=== PATIENT | female | born 1965 | race Caucasian/White ===

== ENCOUNTER 2017-03-25 21:14 | Inpatient (IN) | payer OTHER ==
[~2017-03-25] VITALS: Ht 167.6 cm; Wt 132.9 kg
--- NOTE | ~2017-03-25 | PR ---
[place], [place] PROGRESS NOTE NAME: ALEJA BULLARD UNIT #: [id number] ROOM: 503 DOCTOR: BEV ZAVALA MD BIRTHDATE: [birth year] DOS: 03/30/2017 CARDIOLOGY FOLLOWUP VISIT NOTE REASON FOR VISIT: NSTEMI and abnormal stress test. SUBJECTIVE: The patient is feeling better. She is sitting up in the bed. She is about to transfer out of ICU. Denies any chest pain, still little short of breath. No PND, no orthopnea. No palpitations or dizziness. No fevers. REVIEW OF SYSTEMS: Review of the 8 systems negative except as mentioned above. PHYSICAL EXAMINATION: VITAL SIGNS: Blood pressure 118/76, pulse 89, respiratory rate 16. Rhythm strips, the patient is in sinus rhythm. GENERAL: Alert, comfortable, in no acute distress. HEENT: Pupils are round. No jaundice. Tongue was moist and pharynx was clear. NECK: Supple. No distended neck veins. No carotid bruit. CHEST: Symmetrical, nontender. LUNGS: Few scattered rhonchi. HEART: Regular rhythm, no S3. ABDOMEN: Obese, nontender. EXTREMITIES: Showed trace edema. Distal pulses are palpable. SKIN: Warm and dry. No cyanosis, no clubbing. Review of the diagnostic test, rhythm strips and labs reviewed. IMPRESSION: 1. Non-ST elevation myocardial infarction. 2. Abnormal stress test. 3. Hypertension. 4. Diabetes type 2. 5. Bronchitis. RECOMMENDATIONS: 1. Continue current medications. 2. She was scheduled for cardiac catheterization on Saturday at [facility] if she is stable from her pulmonary standpoint and bronchitis. [place], [place] PROGRESS NOTE NAME: ALEJA BULLARD UNIT #: [id number] ROOM: 503 DOCTOR: BEV ZAVALA MD BIRTHDATE: [birth year] BEV ZAVALA MD CM:PNTRANS [id number] BEV ZAVALA MD 03/31/17 0913 interface
--- NOTE | ~2017-03-25 | CON ---
[place], [place] REPORT OF CONSULTATION NAME: ALEJA BULLARD UNIT #: [id number] ROOM: 402 DOCTOR: DOROTHY TAYLOR III, DPM BIRTHDATE: [birth year] DOS: 03/27/2017 CHIEF COMPLAINT: Ingrown toenail, left hallux nail. HISTORY OF PRESENT ILLNESS: This is a 51-year-old female who was admitted for chief complaint of shortness of breath who was seen at bedside for evaluation regarding the left hallux ingrown nail. The patient states she has had problems with this in the past. She states she has tried trimming the nail back on her own; however, she feels that there is a corner deep inside the nail bed. The patient does relate a history of smoking 1 or 2 packs a day for approximately 40 years. PAST MEDICAL HISTORY: Significant for hypertension, tobacco use, morbid obesity. PAST SURGICAL HISTORY: . FAMILY HISTORY: Father at 52 of a heart attack. Mother still alive and healthy. ALLERGIES: No known drug allergies. MEDICATIONS: Please refer to medication list. PHYSICAL EXAMINATION: VITAL SIGNS: Temperature 97.5, pulse rate of 93, respiratory rate of 20, blood pressure 151/87. VASCULAR: DP and PT pulses are barely palpable, CFT is within normal limits, lack of hair growth appreciated bilateral lower extremities. DERMATOLOGY: The patient has an incurvated left hallux nail appreciated on examination with tenderness to palpation of the lateral hallux nail border distally. No signs of infection. No cellulitis. No lymphangitis. No pus or drainage. NEUROLOGIC: Intact protective sensation. ORTHOPEDICS: Muscle strength is intact. Negative Homans', negative calf pain. Pain on palpation of the lateral hallux nail border, left. LABORATORY DATA: White blood cell count 7.4, hemoglobin 11.9, hematocrit 36.3, platelets 233. ASSESSMENT: 1. Ingrown left hallux nail. 2. Peripheral arterial disease. TREATMENT PLAN AND RECOMMENDATIONS: Findings as well as prognosis discussed in detail with the patient. All questions were answered to her apparent satisfaction. This is a 51-year-old female admitted for shortness of breath with a long history of smoking 1 or 2 packs a day for 40 years seen at bedside for a painful ingrown left hallux nail with no gross signs of infection. I have ordered some baseline vascular studies prior to proceeding with surgical [place], [place] REPORT OF CONSULTATION NAME: ALEJA BULLARD UNIT #: [id number] ROOM: 402 DOCTOR: DOROTHY TAYLOR III, DPM BIRTHDATE: [birth year] intervention. A slant back procedure was performed at the bedside, which appeared to resolve most of her discomfort. Should her pain continue, we will have to proceed with a nail avulsion which can be done as an outpatient. The patient notes understanding and is in agreement. She has already seen another doctor in our group. We will order some noninvasive vascular studies and proceed from there. Antibiotic ointment as well as topical Band-Aid was applied today to the nail and can be applied on a daily basis. DOROTHY TAYLOR III, DPM CM:CONSTR:REPORT OF CONSULTATION 1217 03/28/17 0205 interface
--- NOTE | ~2017-03-25 | PR ---
[place], [place] PROGRESS NOTE NAME: ALEJA BULLARD [facility] #: [id number] UNIT #: [id number] ROOM: 402 DOCTOR: ZOË NICOLAS DPM BIRTHDATE: [birth year] DOS: 03/28/2017 SUBJECTIVE: The patient was seen for followup of incurvated lateral border, left hallux. The patient felt much improved after yesterday and is feeling no pain to the toe today. OBJECTIVE: No signs of erythema or drainage, left great toe, much improved. No pain upon direct palpation. Results of arterial vascular exam revealed all the major runoff vessels are patent in both lower extremities. Doppler waveforms suggest mild arterial disease on the left distal to the popliteal. There is inability to compress the vessels at the ankle for an WILMER suggestive of arterial ____ calcification. ASSESSMENT: Peripheral vascular disease, perionychia, onychocryptosis, lateral first left toe. PLAN: Evaluation and management discussed with the patient. Recommendation of possible partial matrixectomy in the future to the lateral left hallux, but also recommended vascular consultation prior to that. A venous Doppler will be ordered due to edema of the left lower extremity also, however, and the patient can be seen early next week for followup. ZOË NICOLAS DPM CM:ZOHAIB [id number] ZOË NICOLAS DPM 03/29/17 0239 interface
--- NOTE | ~2017-03-25 | PR ---
[place], [place] PROGRESS NOTE NAME: ALEJA BULLARD UNIT #: [id number] ROOM: 503 DOCTOR: BEV ZAVALA MD BIRTHDATE: [birth year] DOS: 03/31/2017 CARDIOLOGY FOLLOWUP VISIT NOTE REASON FOR : Chest pain, abnormal stress test and elevated cardiac enzymes. HISTORY OF PRESENT ILLNESS: The patient is feeling better. Denies any chest pain. No orthopnea, no PND. No edema, no fever and chills, no cough. REVIEW OF SYSTEMS: Review of the 8 systems negative except as mentioned above. RHYTHM STRIPS: The patient in sinus rhythm. PHYSICAL EXAMINATION: VITAL SIGNS: Blood pressure 120/70, pulse 80, respiratory rate is 18. GENERAL: Alert, comfortable, in no acute distress. HEAD AND NECK: Pupils round, equal. No jaundice. Tongue was moist and pharynx was clear. NECK: Supple, no distended neck veins, no carotid bruit. CHEST: Symmetrical, nontender. LUNGS: Clear to auscultation bilaterally. HEART: Regular rhythm, no S3. ABDOMEN: Benign, nontender. Bowel sounds normal. EXTREMITIES: Showed no edema. Distal pulses are palpable. SKIN: Warm and dry. No cyanosis, no clubbing. NEUROLOGIC: The patient is alert, oriented. No focal neurologic deficit. RECTAL: Deferred. GENITOURINARY EXAM: Deferred. REVIEW OF THE DIAGNOSTIC TESTS: Labs and rhythm strips reviewed. IMPRESSION: 1. Non-ST elevation myocardial infarction. 2. Abnormal stress test. 3. Hypertension. 4. Diabetes mellitus type 2. 5. Obesity. 6. Bronchitis. RECOMMENDATIONS: Continue current medication. Wean her oxygen by nasal cannula. She was scheduled for cardiac catheterization tomorrow at [facility] at 10 a.m. Again, risk, complications of cardiac catheterization discussed with the patient and her family member who is at bedside and all questions were answered. Further recommendations based on her cardiac cath findings. [place], [place] PROGRESS NOTE NAME: ALEJA BULLARD UNIT #: [id number] ROOM: 503 DOCTOR: BEV ZAVALA MD BIRTHDATE: [birth year] The patient counseled for risk factor modification, especially for diet, exercise, and weight loss. BEV ZAVALA MD CM:ZOHAIB 50 6 BEV ZAVALA MD 04/01/17 015 interface
--- NOTE | ~2017-03-25 | ST ---
[place], [place] EXERCISE STRESS TEST REPORT [facility]ULLARD [id number] UN[facility] #: [id number] ROOM: [facility] DOCTOR: RODNEY LÓPEZ MD BIRTHDATE: [birth year] DOS: 03/29/2017 LEXISCAN STRESS EKG REPORT REFERRING PHYSICIAN: Dr. Erickson. INDICATION: Elevated troponin, shortness of breath, chest pain. The patient underwent standard protocol Lexiscan stress EKG. The patient's baseline EKG showed normal sinus rhythm with nonspecific ST-T changes. The patient's baseline heart rate was 99 with a blood pressure of 136/82. The patient's peak heart rate was 109 with a blood pressure 140/80. The patient denied any chest pain, shortness of breath or other symptoms during stress. No EKG changes noted. No arrhythmias noted. SUMMARY OF FINDINGS: 1. Unremarkable Lexiscan stress EKG. 2. Please see separate report for perfusion scan results. RODNEY LÓPEZ MD CM:STRESS:EXERCISE STRESS TEST REPORT [id number] RODNEY LÓPEZ MD
[2017-03-25 21:22] VITALS: BP 160/98
[2017-03-25] MEDS ORDERED: ROPINIROLE HYDRO3 MG PO (21:23)
[2017-03-25] MEDS ORDERED: LOSARTAN POTAS100 M1 PO (21:23)
[2017-03-25] MEDS ORDERED: IBU800 M1 PO (21:23)
[2017-03-25] MEDS ORDERED: CHANTIX START M1 TAB PO (21:24)
[2017-03-25 21:58] LABS: BASO % 0.4 % (0.0-1.0); EOS # 0.1 10*3/uL (0.0-0.4); EOS % 1.9 % (1.0-4.0); HEMATOCRIT 35.3 % (37.0-47.0); HEMOGLOBIN 11.4 g/dl (12.0-16.0); LYMPH # 1.6 10*3/uL (1.3-4.4); LYMPH % 24.4 % (27.0-41.0); MEAN CELL VOLUME 98.9 fl (81.0-99.0); MEAN CORPUSCULAR HGB 31.9 pg (27.0-31.0); MEAN CORPUSCULAR HGB CONC 32.3 g/dl (33.0-37.0); MEAN PLATELET VOLUME 9.4 fl (9.6-12.3); MONO # 0.4 10*3/uL (0.1-1.0); MONO % 5.2 % (3.0-9.0); NEUT # 4.6 10*3/uL (2.3-7.9); NEUT % 67.8 % (47.0-73.0); PLATELET COUNT AUTOMATED 214 10*3/uL (130-400); RED BLOOD COUNT 3.57 10*6/uL (4.10-5.10); RED CELL DISTRI WIDTH 13.4 % (0-14.5); WHITE BLOOD COUNT 6.7 10*3/uL (4.8-10.8)
[2017-03-25 22:07] LABS: INTERNATIONAL NORM RATIO 0.9 (2.0-3.5); PROTHROMBIN TIME 9.9 SECONDS (9.0-12.4)
[2017-03-25 22:15] LABS: ALBUMIN 3.3 gm/dl (3.1-4.5); ALKALINE PHOSPHATASE 76 U/L (45-117); BILIRUBIN, TOTAL 0.3 mg/dl (0.2-1.0); BUN 20 mg/dl (7-24); CARBON DIOXIDE 25 mmol/L (21-32); CHLORIDE 115 mmol/L (98-107); EST GLOM FILT AFRICAN AMERICAN > 60 ml/min; GLUCOSE 110 mg/dL (65-99); MAGNESIUM 1.8 mg/dL (1.5-2.1); POTASSIUM 4.7 mmol/L (3.5-5.1); SGOT/AST 22 IU/L (3-35); SGPT/ALT 45 U/L (12-78); SODIUM 147 mmol/L (136-145); TOTAL PROTEIN 6.6 gm/dL (6.4-8.2)
[2017-03-25 22:21] LABS: TROPONIN I 0.065 ng/ml (<0.045)
[2017-03-26] VITALS: BP 150/80
[2017-03-26 00:51] LABS: CKMB 5.4 ng/ml (0.5-3.6); TROPONIN I 0.058 ng/ml (<0.045)
[2017-03-26 06:31] LABS: HEMATOCRIT 36.3 % (37.0-47.0); HEMOGLOBIN 11.9 g/dl (12.0-16.0); MEAN CELL VOLUME 98.4 fl (81.0-99.0); MEAN CORPUSCULAR HGB 32.2 pg (27.0-31.0); MEAN CORPUSCULAR HGB CONC 32.8 g/dl (33.0-37.0); MEAN PLATELET VOLUME 9.5 fl (9.6-12.3); PLATELET COUNT AUTOMATED 233 10*3/uL (130-400); RED BLOOD COUNT 3.69 10*6/uL (4.10-5.10); RED CELL DISTRI WIDTH 13.5 % (0-14.5); WHITE BLOOD COUNT 7.4 10*3/uL (4.8-10.8)
[2017-03-26 06:43] LABS: ALBUMIN 3.7 gm/dl (3.1-4.5); ALKALINE PHOSPHATASE 78 U/L (45-117); BILIRUBIN, TOTAL 0.3 mg/dl (0.2-1.0); BUN 16 mg/dl (7-24); CARBON DIOXIDE 24 mmol/L (21-32); CHLORIDE 111 mmol/L (98-107); CHOLESTEROL 213 mg/dL (<200); EST GLOM FILT AFRICAN AMERICAN > 60 ml/min; GLUCOSE 155 mg/dL (65-99); HDL CHOLESTEROL 80 mg/dl (40-60); LDL CHOLESTEROL 111 mg/dL (9-159); MAGNESIUM 1.9 mg/dL (1.5-2.1); PHOSPHOROUS 3.2 mg/dL (2.5-4.9); POTASSIUM 4.4 mmol/L (3.5-5.1); SGOT/AST 21 IU/L (3-35); SGPT/ALT 44 U/L (12-78); SODIUM 144 mmol/L (136-145); TOTAL PROTEIN 7.1 gm/dL (6.4-8.2); TRIGLYCERIDES 110 mg/dl (<150); TROPONIN I 0.042 ng/ml (<0.045); VLDL CHOLESTEROL 22 mg/dL (6-40)
[2017-03-26 06:45] LABS: FREE T4 1.04 ng/dl (0.76-1.46)
[2017-03-26 06:49] LABS: THYROID STIM HORMONE (HS) 0.968 uIU/ml (0.358-4.75)
[2017-03-26 06:59] LABS: LYMPHOCYTE # 0.1 10*3/uL (1.3-4.4); MONOCYTE # 0.1 10*3/uL (0.1-1.0); NEUTROPHIL # 7.1 10*3/uL (2.3-7.9); NEUTROPHILS 96 % (47-73); PLATELET SUFFICIENCY NORMAL (NORMAL); TOTAL CELLS COUNTED 100 #CELLS
[2017-03-26 07:09] LABS: INTERNATIONAL NORM RATIO 0.9 (2.0-3.5)
[2017-03-26 07:23] LABS: HEMOGLOBIN A1c 6.1 % (4.8-5.6)
[2017-03-26 07:59] LABS: FOLIC ACID 4.19 ng/mL (>5.38); VITAMIN D, 25-HYDROXY 6.4 ng/mL (30-100)
[2017-03-26 08:00] VITALS: BP 150/74
[2017-03-26 12:00] VITALS: BP 147/85
[2017-03-26 16:00] VITALS: BP 164/74
[2017-03-26 20:00] VITALS: BP 133/87
[2017-03-27] VITALS: BP 147/89
[2017-03-27 08:00] VITALS: BP 151/87
[2017-03-27 12:00] VITALS: BP 144/86
[2017-03-27 16:00] VITALS: BP 147/65
[2017-03-27 20:00] VITALS: BP 146/79
[2017-03-28] VITALS: BP 148/80
[2017-03-28 08:00] VITALS: BP 146/84
[2017-03-28 12:00] VITALS: BP 136/73
[2017-03-28 16:46] VITALS: BP 149/89
[2017-03-28 20:00] VITALS: BP 144/85
[2017-03-29] VITALS: BP 148/81
[2017-03-29 06:34] LABS: BASO % 0.1 % (0.0-1.0); HEMATOCRIT 40.1 % (37.0-47.0); HEMOGLOBIN 13.2 g/dl (12.0-16.0); IG # 0.1 10*3/uL (0.0-0.1); LYMPH # 0.9 10*3/uL (1.3-4.4); LYMPH % 8.9 % (27.0-41.0); MEAN CELL VOLUME 96.9 fl (81.0-99.0); MEAN CORPUSCULAR HGB 31.9 pg (27.0-31.0); MEAN CORPUSCULAR HGB CONC 32.9 g/dl (33.0-37.0); MEAN PLATELET VOLUME 10.2 fl (9.6-12.3); MONO # 0.4 10*3/uL (0.1-1.0); MONO % 3.4 % (3.0-9.0); NEUT # 8.9 10*3/uL (2.3-7.9); NEUT % 86.5 % (47.0-73.0); PLATELET COUNT AUTOMATED 322 10*3/uL (130-400); RED BLOOD COUNT 4.14 10*6/uL (4.10-5.10); RED CELL DISTRI WIDTH 13.6 % (0-14.5); WHITE BLOOD COUNT 10.3 10*3/uL (4.8-10.8)
[2017-03-29 06:58] LABS: CHLORIDE 105 mmol/L (98-107); POTASSIUM 4.4 mmol/L (3.5-5.1); SODIUM 140 mmol/L (136-145)
[2017-03-29 07:02] LABS: BUN 18 mg/dl (7-24); CARBON DIOXIDE 25 mmol/L (21-32); EST GLOM FILT AFRICAN AMERICAN > 60 ml/min; GLUCOSE 155 mg/dL (65-99)
[2017-03-29] MEDS ORDERED: ATORVASTATIN CA40 M1 PO (07:53)
[2017-03-29] MEDS ORDERED: PHARMASSURE FO0.4 MG PO (07:53)
[2017-03-29] MEDS ORDERED: VITAMIN D-32000 UNIT PO (07:53)
[2017-03-29] MEDS ORDERED: PREDNISONE10 MG PO (07:54)
[2017-03-29] MEDS ORDERED: LEVOFLOXACIN500 MG PO (07:54)
[2017-03-29 08:00] VITALS: BP 148/90
[2017-03-29 09:05] VITALS: BP 203/115
[2017-03-29 09:09] LABS: CKMB 3.6 ng/ml (0.5-3.6)
[2017-03-29 14:00] VITALS: BP 135/75
[2017-03-29 16:00] VITALS: BP 108/71
[2017-03-29 19:50] VITALS: BP 131/84
[2017-03-30] VITALS: BP 124/81
[2017-03-30 04:00] VITALS: BP 112/80
[2017-03-30 05:50] LABS: BASO % 0.1 % (0.0-1.0); HEMATOCRIT 39.1 % (37.0-47.0); HEMOGLOBIN 13.1 g/dl (12.0-16.0); IG # 0.1 10*3/uL (0.0-0.1); LYMPH # 0.9 10*3/uL (1.3-4.4); LYMPH % 8.5 % (27.0-41.0); MEAN CELL VOLUME 96.3 fl (81.0-99.0); MEAN CORPUSCULAR HGB 32.3 pg (27.0-31.0); MEAN CORPUSCULAR HGB CONC 33.5 g/dl (33.0-37.0); MEAN PLATELET VOLUME 10.2 fl (9.6-12.3); MONO # 0.4 10*3/uL (0.1-1.0); MONO % 3.9 % (3.0-9.0); NEUT # 8.9 10*3/uL (2.3-7.9); NEUT % 86.7 % (47.0-73.0); PLATELET COUNT AUTOMATED 280 10*3/uL (130-400); RED BLOOD COUNT 4.06 10*6/uL (4.10-5.10); RED CELL DISTRI WIDTH 13.5 % (0-14.5); WHITE BLOOD COUNT 10.3 10*3/uL (4.8-10.8)
[2017-03-30 05:57] LABS: BUN 21 mg/dl (7-24); CARBON DIOXIDE 27 mmol/L (21-32); CHLORIDE 102 mmol/L (98-107); EST GLOM FILT AFRICAN AMERICAN > 60 ml/min; GLUCOSE 229 mg/dL (65-99); POTASSIUM 4.3 mmol/L (3.5-5.1); SODIUM 138 mmol/L (136-145)
[2017-03-30 08:00] VITALS: BP 118/68
[2017-03-30 12:00] VITALS: BP 118/76
[2017-03-30 16:00] VITALS: BP 110/56
[2017-03-30 20:00] VITALS: BP 129/78
[2017-03-31] VITALS: BP 115/73
[2017-03-31 08:00] VITALS: BP 115/70
[2017-03-31 12:00] VITALS: BP 120/72
[2017-03-31 16:00] VITALS: BP 113/69
[2017-03-31 20:00] VITALS: BP 125/79
[2017-04-01] VITALS: BP 127/75
[2017-04-01 06:37] LABS: BASO % 0.1 % (0.0-1.0); HEMATOCRIT 43.9 % (37.0-47.0); HEMOGLOBIN 14.6 g/dl (12.0-16.0); IG # 0.1 10*3/uL (0.0-0.1); LYMPH # 0.9 10*3/uL (1.3-4.4); LYMPH % 6.5 % (27.0-41.0); MEAN CELL VOLUME 95.9 fl (81.0-99.0); MEAN CORPUSCULAR HGB 31.9 pg (27.0-31.0); MEAN CORPUSCULAR HGB CONC 33.3 g/dl (33.0-37.0); MEAN PLATELET VOLUME 9.9 fl (9.6-12.3); MONO # 0.5 10*3/uL (0.1-1.0); MONO % 3.9 % (3.0-9.0); NEUT # 12.2 10*3/uL (2.3-7.9); NEUT % 88.5 % (47.0-73.0); PLATELET COUNT AUTOMATED 323 10*3/uL (130-400); RED BLOOD COUNT 4.58 10*6/uL (4.10-5.10); RED CELL DISTRI WIDTH 13.3 % (0-14.5); WHITE BLOOD COUNT 13.8 10*3/uL (4.8-10.8)
[2017-04-01 06:59] LABS: BUN 26 mg/dl (7-24); CARBON DIOXIDE 30 mmol/L (21-32); CHLORIDE 101 mmol/L (98-107); EST GLOM FILT AFRICAN AMERICAN > 60 ml/min; GLUCOSE 188 mg/dL (65-99); SODIUM 139 mmol/L (136-145)
== END 2017-04-01 07:56 | disposition other institution (70) | DRG 871 ==
LOC: ED 21:14 → 4E 22:50 → EDHOLD 22:50 → 4E 23:05 → ICCU 03-29 08:36 → 5E 03-30 13:47
PROVIDERS: Hospitalist; Internal Medicine Cardiovascular Disease; Physician Assistant; Student in an Organized Health Care Education/Training Program
PROC: 4A02XM4 Measurement of Cardiac Total Activity, External Approach (ICD-10-PCS; principal; 2017-03-29)
DX: A41.9 Sepsis, unspecified organism (principal); J18.9 Pneumonia, unspecified organism; I21.4 Non-ST elevation (NSTEMI) myocardial infarction; E87.0 Hyperosmolality and hypernatremia; E87.8 Other disorders of electrolyte and fluid balance, not elsewhere classified; B35.1 Tinea unguium; Z68.41 Body mass index [BMI] 40.0-44.9, adult; J20.9 Acute bronchitis, unspecified; D64.9 Anemia, unspecified; E83.51 Hypocalcemia; G25.81 Restless legs syndrome; E53.8 Deficiency of other specified B group vitamins; F17.200 Nicotine dependence, unspecified, uncomplicated; I10 Essential (primary) hypertension; E66.01 Morbid (severe) obesity due to excess calories; R06.01 Orthopnea; L60.0 Ingrowing nail; R10.13 Epigastric pain; E11.65 Type 2 diabetes mellitus with hyperglycemia; E11.51 Type 2 diabetes mellitus with diabetic peripheral angiopathy without gangrene; L03.039 Cellulitis of unspecified toe; Z79.1 Long term (current) use of non-steroidal anti-inflammatories (NSAID); Z79.899 Other long term (current) drug therapy; Z82.49 Family history of ischemic heart disease and other diseases of the circulatory system

== ENCOUNTER → 2017-05-01 | Outpatient (CLI) | payer OTHER ==
[~2017-05-01] MED LIST: ATORVASTATIN CA40 M1 PO; CHANTIX START M1 TAB PO; IBU800 M1 PO; LEVOFLOXACIN500 MG PO; LOSARTAN POTAS100 M1 PO; PHARMASSURE FO0.4 MG PO; PREDNISONE10 MG PO; ROPINIROLE HYDRO3 MG PO; VITAMIN D-32000 UNIT PO
== END | disposition home or self-care (01) ==
LOC: RAD 16:06
DX: J18.9 Pneumonia, unspecified organism (principal); I10 Essential (primary) hypertension; I51.7 Cardiomegaly; M25.473 Effusion, unspecified ankle

== ENCOUNTER 2017-10-07 08:46 | Emergency (ER) | payer OTHER ==
[~2017-10-07] VITALS: Ht 167.6 cm; Wt 136.1 kg
[2017-10-07 09:58] LABS: BASO % 0.2 % (0.0-1.0); EOS % 0.1 % (1.0-4.0); HEMATOCRIT 35.5 % (37.0-47.0); HEMOGLOBIN 12.2 g/dl (12.0-16.0); LYMPH # 0.7 10*3/uL (1.3-4.4); LYMPH % 6.6 % (27.0-41.0); MEAN CELL VOLUME 94.7 fl (81.0-99.0); MEAN CORPUSCULAR HGB 32.5 pg (27.0-31.0); MEAN CORPUSCULAR HGB CONC 34.4 g/dl (33.0-37.0); MEAN PLATELET VOLUME 9.4 fl (9.6-12.3); MONO # 0.4 10*3/uL (0.1-1.0); NEUT # 9.7 10*3/uL (2.3-7.9); NEUT % 88.8 % (47.0-73.0); PLATELET COUNT AUTOMATED 231 10*3/uL (130-400); RED BLOOD COUNT 3.75 10*6/uL (4.10-5.10); RED CELL DISTRI WIDTH 13.3 % (0-14.5); WHITE BLOOD COUNT 10.9 10*3/uL (4.8-10.8)
[2017-10-07 10:13] LABS: ALBUMIN 3.4 gm/dl (3.1-4.5); ALKALINE PHOSPHATASE 94 U/L (45-117); BUN 10 mg/dl (7-24); CHLORIDE 103 mmol/L (98-107); CREATININE 0.64 mg/dL (0.55-1.02); POTASSIUM 3.9 mmol/L (3.5-5.1); SGOT/AST 34 IU/L (3-35); SGPT/ALT 68 U/L (12-78); SODIUM 136 mmol/L (136-145); TOTAL PROTEIN 7.2 gm/dL (6.4-8.2)
[2017-10-07] MEDS ORDERED: PROAIR HFA8.5 GM INH (11:42)
[2017-10-07] MEDS ORDERED: ROBITUSSIN DM 105 ML PO (11:42)
[2017-10-07] MEDS ORDERED: PREDNISONE20 M1 PO (11:42)
[2017-10-07] MEDS ORDERED: ZITHROMAX250 MG PO (11:42)
== END 2017-10-07 12:02 | disposition home or self-care (01) ==
LOC: ED 08:46
PROVIDERS: Nurse Practitioner Family
DX: J20.9 Acute bronchitis, unspecified (principal); J44.0 Chronic obstructive pulmonary disease with (acute) lower respiratory infection; Z79.899 Other long term (current) drug therapy

== ENCOUNTER 2018-03-21 17:16 | Emergency (ER) | payer OTHER ==
[~2018-03-21] VITALS: Ht 170.1 cm; Wt 129.3 kg
--- NOTE | ~2018-03-21 | EKG ---
[place], [place] ELECTROCARDIOGRAM REPORT NAME: ALEJA BULLARD UNIT #: [id number] ROOM: DOCTOR: IGOR MAKI MD BIRTHDATE: [birth year] DOS: 03/21/2018 TIME: 1744 hours. FINDINGS: 1. Normal sinus rhythm at 97 beats per minute. 2. Minimal criteria for LVH. 3. Poor R-wave progression is present that may be from lead misplacement or old anterior wall myocardial infarction is a possibility. 4. Left atrial abnormality. 5. An abnormal ECG. 6. No previous tracing is available for comparison. IGOR MAKI MD CM:EKGRPT:ELECTROCARDIOGRAM REPORT [id number] 1441 IGOR MAKI MD
[~2018-03-21 17:16] MED LIST changes: +PREDNISONE20 M1 PO; +PROAIR HFA8.5 GM INH; +ROBITUSSIN DM 105 ML PO; +ZITHROMAX250 MG PO
[2018-03-21 17:51] LABS: BASO % 0.6 % (0.0-1.0); EOS # 0.1 10*3/uL (0.0-0.4); EOS % 1.6 % (1.0-4.0); HEMATOCRIT 35.1 % (37.0-47.0); HEMOGLOBIN 11.2 g/dl (12.0-16.0); LYMPH # 1.3 10*3/uL (1.3-4.4); LYMPH % 18.6 % (27.0-41.0); MEAN CELL VOLUME 95.1 fl (81.0-99.0); MEAN CORPUSCULAR HGB 30.4 pg (27.0-31.0); MEAN CORPUSCULAR HGB CONC 31.9 g/dl (33.0-37.0); MEAN PLATELET VOLUME 10.2 fl (9.6-12.3); MONO # 0.4 10*3/uL (0.1-1.0); MONO % 5.2 % (3.0-9.0); NEUT # 4.9 10*3/uL (2.3-7.9); NEUT % 73.7 % (47.0-73.0); PLATELET COUNT AUTOMATED 242 10*3/uL (130-400); RED BLOOD COUNT 3.69 10*6/uL (4.10-5.10); RED CELL DISTRI WIDTH 14.5 % (0-14.5); WHITE BLOOD COUNT 6.7 10*3/uL (4.8-10.8)
[2018-03-21 18:08] LABS: ALBUMIN 3.5 gm/dl (3.1-4.5); ALKALINE PHOSPHATASE 71 U/L (45-117); BUN 12 mg/dl (7-24); CHLORIDE 108 mmol/L (98-107); CREATININE 0.79 mg/dL (0.55-1.02); POTASSIUM 4.6 mmol/L (3.5-5.1); SGOT/AST 33 IU/L (3-35); SGPT/ALT 53 U/L (12-78); SODIUM 144 mmol/L (136-145); TOTAL PROTEIN 6.8 gm/dL (6.4-8.2)
[2018-03-21 18:16] LABS: TROPONIN I 0.085 ng/ml (<0.045)
[2018-03-21] MEDS ORDERED: SYMB160 INH (19:08)
[2018-03-21] MEDS ORDERED: FUROSEMIDE40 MG PO (19:08)
[2018-03-21] MEDS ORDERED: IBU800 M1 PO (19:36)
[2018-03-21] MEDS ORDERED: PROAIR HFA8.5 GM INH (19:36)
[2018-03-21] MEDS ORDERED: VITAMIN B125000 MCG SL (19:36)
[2018-03-21] MEDS ORDERED: LASIX40 MG PO (20:40)
== END 2018-03-21 20:43 | disposition home or self-care (01) ==
LOC: ED 17:16
PROVIDERS: Emergency Medicine
DX: J44.1 Chronic obstructive pulmonary disease with (acute) exacerbation (principal); J96.20 Acute and chronic respiratory failure, unspecified whether with hypoxia or hypercapnia; I10 Essential (primary) hypertension; R73.9 Hyperglycemia, unspecified

== ENCOUNTER 2019-08-30 12:40 | Inpatient (IN) | payer OTHER ==
[~2019-08-30] VITALS: Ht 170.2 cm; Wt 122.7 kg
[2019-08-30] VITALS (9 sets, daily range): BP systolic 100–125; BP diastolic 56–80
--- NOTE | ~2019-08-30 | EKG ---
[place], [place] ELECTROCARDIOGRAM REPORT NAME: ALEJA BULLARD UNIT #: [id number] ROOM: 428 DOCTOR: JOSE RAUL DRAFT REPORT BIRTHDATE: [birth year] 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1965 Requested By: RUPERT FELIPE Order Number: [id number] Reading MD: Roc Gonzales Measurements Intervals [place] Rate: 99 P: 62 [place]: 167 QRS: 64 QRSD: 113 T: 102 QT: 395 QTc: 507 Interpretive Statements Sinus rhythm Ventricular bigeminy Probable left atrial enlargement Borderline intraventricular conduction delay Borderline low voltage, extremity leads Abnormal R-wave progression, late transition Borderline repolarization abnormality.Baseline wander in lead(s) V2,V3 Compared to ECG 08/30/2019 19:33:32 Ventricular premature complex(es) now present Atrial flutter no longer present.2:1 AV block no longer present Possible ischemia no longer present ST (T wave) deviation no longer present Electronically Signed On 09-02-2019 9:36:39 PST by Roc Gonzales CM:EKGRPT:ELECTROCARDIOGRAM REPORT [id number] RUPERT BRODY DRAFT REPORT RUPERT FELIPE DO
--- NOTE | ~2019-08-30 | CON ---
[place], [place] REPORT OF CONSULTATION NAME: ALEJA BULLARD UNIT #: [id number] ROOM: 428 DOCTOR: LUCAS FELIXBEV BIRTHDATE: [birth year] DOS: 08/31/2019 CARDIOLOGY CONSULTATION REASON FOR CONSULTATION: Atrial fibrillation and elevated troponin. HISTORY OF PRESENT ILLNESS: The patient is 54 with history of COPD, heart failure, hypertension, diabetes, presented to the hospital for shortness of breath as well as edema for the past one week. A couple of years ago, the patient's echo showed EF of 50%, shows a normal cardiac catheterization. Her main complaint is shortness of breath and some edema of the feet. No PND, no orthopnea. No nausea or vomiting. No fever and chills. The patient was on home oxygen. No palpitation or dizziness. No bladder or bowel symptoms, no neurologic symptoms. She was seen by facepiece line supervisor in [place], but has not seen him recently. She did have some nausea, but no vomiting, no visual symptoms, no neurologic symptoms. She quit smoking about 3 years ago. In the Emergency Room, the patient noted to be in atrial flutter and was admitted to the hospital for CHF and new onset atrial flutter and Cardiology consulted for further recommendations. REVIEW OF SYSTEMS: Review of 10 systems negative except as mentioned above. PAST MEDICAL HISTORY: 1. History of diastolic heart failure. 2. Valvular heart disease. 3. Home oxygen. 4. Hypertension. 5. Diabetes type 2. 6. Morbid obesity. 7. COPD. 8. Restless leg syndrome. PAST SURGICAL HISTORY: History of . FAMILY HISTORY: Father had a heart attack at age 52. Mother is healthy. SOCIAL HISTORY: The patient does not use illicit drugs, does not drink. Quit smoking over 3 years ago. MEDICATIONS: Reviewed. ALLERGIES: Reviewed. PHYSICAL EXAMINATION: VITAL SIGNS: Blood pressure 104/64, pulse 98, respiratory rate was 18, weight 125 kg, BMI 43. GENERAL: Alert, comfortable, in no acute distress. HEENT: Pupils are round and equal, no jaundice. NECK: Supple, no distended neck veins, no carotid bruit. CHEST: Symmetrical, nontender. [place], [place] REPORT OF CONSULTATION NAME: ALEJA BULLARD UNIT #: [id number] ROOM: [facility] DOCTOR: LUCAS FELIX,BEV BIRTHDATE: [birth year] LUNGS: A few scattered rhonchi. Good air entry bilaterally. HEART: Irregularly irregular, no S3. Grade 1/6 systolic murmur. ABDOMEN: Obese, nontender. Bowel sounds normal. EXTREMITIES: Showed 1+ edema. Distal pulses palpable. SKIN: Warm and dry. No cyanosis, no clubbing. RECTAL: Deferred. GENITOURINARY: Deferred. NEUROLOGIC: The patient is alert with no focal neurologic deficit. MUSCULOSKELETAL: No joint tenderness or swelling. PSYCHIATRIC: The patient is alert with no good mood and affect. REVIEW OF THE DIAGNOSTIC TESTS: EKG showed atrial flutter with rapid ventricular rate. Potassium 2.9, hemoglobin 11.1, platelet 216,000. Creatinine 0.69. Cardiac troponins are 0.114 and 0.10, hemoglobin A1c 8.5. Echo from 03/27/2017 showed EF 62%, LV hypertrophy with diastolic dysfunction, [id number] mitral regurgitation, tricuspid regurgitation. Right ventricular systolic pressure of 42 mmHg. IMPRESSION: 1. New onset atrial flutter, currently rate controlled. CHADS-VASc score of at least 3. 2. Borderline elevation of troponin due to tachycardia. 3. Chronic heart failure with preserved ejection fraction. 4. Hypokalemia. 5. Hypertension. 6. Diabetes type 2. 7. Morbid obesity. 8. Chronic respiratory failure with home oxygen. 9. Lactic acidosis. RECOMMENDATIONS: Continue IV Lasix for CHF and rate control medication. Supplement her potassium. The patient is scheduled for MELISSA cardioversion for new onset atrial flutter. Risks, benefits, and alternatives discussed with the patient is agreeable for a MELISSA-guided cardioversion. Risks and benefits of oral anticoagulation discussed. The patient agreed to take Xarelto, which was started today evening and discontinue her Lovenox. I would recommend outpatient stress test; however, the patient said she had a cardiac catheterization a couple of years ago, results unavailable. Aggressive risk factor modification for compliance with medications and diet as well as diet, exercise and weight loss discussed. Above recommendation discussed with the patient and her who is at bedside. [place], [place] REPORT OF CONSULTATION NAME: ALEJA BULLARD UNIT #: [id number] ROOM: [facility] DOCTOR: BEV ZAVALA MD BIRTHDATE: [birth year] BEV ZAVALA MD CM:CONSTR:REPORT OF CONSULTATION 1855 09/01/19 0658 interface
--- NOTE | ~2019-08-30 | O ---
[place], [place] OPERATIVE NOTE NAME: [facility]ULLARD [id number] UNIT #: [id number] ROOM: 428 DOCTOR: LUCAS FELIX,BEV BIRTHDATE: [birth year] DOS: 08/31/2019 PROCEDURE: DC cardioversion x 1. PREOPERATIVE DIAGNOSIS: Atrial fibrillation. POSTOPERATIVE DIAGNOSIS: Atrial fibrillation. IMMEDIATE COMPLICATIONS: None. SEDATION: LMA sedation by anesthesia. CLINICAL HISTORY: The patient was scheduled for a DC cardioversion due to her atrial fibrillation with rapid ventricular rate. Risks, complications, and alternatives were discussed and an informed consent was obtained. The patient was on anticoagulation with therapeutic dose of Lovenox. OPERATIVE REPORT: The patient was brought to the operative room. She was connected to pulse oximetry, blood pressure, and heart rhythm monitor. A MELISSA was performed to rule out intracardiac thrombus. The MELISSA showed no intracardiac thrombus. At the time, patient underwent 200 joules of synchronized biphasic direct current via anterior and posterior cardioversion pads and converted to sinus rhythm and maintained in sinus rhythm. Post-procedure, the patient is alert with the vital signs stable and no focal neurologic deficit. CONCLUSION: Successful conversion of atrial fibrillation to the sinus rhythm with the single attempt of 200 joules of synchronized biphasic direct current. BEV ZAVALA MD CM:OPRECORD:OPERATIVE NOTE 1403 1442 BEV ZAVALA MD 08/31/19 1441 interface
--- NOTE | ~2019-08-30 | EKG ---
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1965 Requested By: OSIRIS NASSAR Order Number: [id number] Reading MD: Roc Gonzales Measurements Intervals [place] Rate: 136 P: DC: QRS: 28 QRSD: 103 T: -32 QT: 208 QTc: 313 Interpretive Statements Atrial flutter with 2:1 AV block Repol abnrm suggests ischemia, diffuse leads Minimal ST elevation, lateral leads Compared to ECG 03/21/2019 21:13:35 2:1 AV block now present Early repolarization now present Possible ischemia now present ST (T wave) deviation now present Sinus rhythm no longer present Atrial abnormality no longer present Prolonged QT interval no longer present Electronically Signed On 08-31-2019 11:15:43 PST by Roc Gonzales CM:EKGRPT:ELECTROCARDIOGRAM REPORT 32 [id number] OSIRIS BLUNT DRAFT REPORT OSIRIS NASSAR MD
--- NOTE | ~2019-08-30 | EKG ---
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1965 Requested By: RUPERT FELIPE Order Number: [id number] Reading MD: Roc Gonzales Measurements Intervals [place] Rate: 105 P: 54 DE: 162 QRS: 73 QRSD: 98 T: -10 QT: 359 QTc: 475 Interpretive Statements Sinus tachycardia, Atrial premature complex Probable left atrial enlargement, Borderline low voltage, extremity leads Abnormal R-wave progression, late transition Minimal ST depression, inferior leads,Compared to ECG 08/30/2019 19:33:32 Atrial premature complex(es) now present Atrial flutter no longer present 2:1 AV block no longer present Early repolarization no longer present Possible ischemia no longer present ST (T wave) deviation still present Electronically Signed On 09-02-2019 9:35:00 PST by Roc Gonzales CM:EKGRPT:ELECTROCARDIOGRAM REPORT 39 [id number] RUPERT BRODY DRAFT REPORT RUPERT FELIPE DO
--- NOTE | ~2019-08-30 | PR ---
[place], [place] PROGRESS NOTE [facility]ULL[id number] UNIT #: [id number] ROOM: 428 DOCTOR: LUCAS FELIXBEV BIRTHDATE: [birth year] DOS: 09/01/2019 CARDIOLOGY FOLLOWUP NOTE REASON FOR VISIT: Atrial fibrillation and cardiomyopathy. HISTORY OF PRESENT ILLNESS: The patient is feeling better, like to go home at least tomorrow. Denies any chest pain or shortness of breath. No PND, no orthopnea. No nausea, vomiting, no palpitations or dizziness. REVIEW OF SYSTEMS: Review of 10 systems negative except as mentioned above. PHYSICAL EXAMINATION: VITAL SIGNS: Blood pressure 99/56, pulse 73, respiratory rate 20, weight 123 kilos. RHYTHM STRIPS: The patient in sinus rhythm. GENERAL: Alert, comfortable, in no acute distress. NECK: Supple, no distended neck veins, no carotid bruit. CHEST: Symmetrical, nontender. LUNGS: Clear to auscultation bilaterally. HEART: Regular rhythm, grade 2/6 systolic murmur. ABDOMEN: Benign, obese, nontender. Bowel sounds normal. EXTREMITIES: Showed trace edema. Distal pulses palpable. SKIN: Warm and dry. No cyanosis, no clubbing. RECTAL: Deferred. GENITOURINARY: Deferred. NEUROLOGIC: Alert with no focal neurologic deficit. MUSCULOSKELETAL: No joint tenderness or swelling. PSYCHIATRIC: The patient is alert with good mood and affect. LABORATORY DATA: Review of diagnostic tests, medications, and labs reviewed. Potassium is 2.7. IMPRESSION: 1. New onset atrial flutter, status post DC cardioversion. The patient maintained in sinus rhythm. 2. Acute systolic heart failure. 3. Possible nonischemic cardiomyopathy of 34-38%. 4. Valvular heart disease with moderate mitral and moderate tricuspid regurgitation. 5. Hypokalemia. 6. Morbid obesity. 7. Hypertension. 8. Diabetes type 2. RECOMMENDATIONS: 1. Change her metoprolol to succinate 200 mg once daily and add a low dose NEELAM inhibitor 2.5 mg once daily and monitor blood pressure and heart rates. 2. Continue Xarelto for anticoagulation. As per the patient, feeling better and her vital signs are stable and potassium levels are normal. She can be [place], [place] PROGRESS NOTE NAME: ALEJA BULLARD UNIT #: [id number] ROOM: [facility] DOCTOR: LUCAS FELIX,BEV BIRTHDATE: [birth year] discharged home tomorrow. 3. No family at bedside at the time of my examination. 4. 2D echo findings are discussed with the patient. BEV ZAVALA MD CM:ZOHAIB 19 0751 BEV ZAVALA MD 09/02/19 1953 interface
--- NOTE | ~2019-08-30 | EKG ---
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1965 Requested By: RUPERT FELIPE Order Number: [id number] Reading MD: Roc Gonzales Measurements Intervals [place] Rate: 91 P: 60 [place]: 172 QRS: 40 QRSD: 112 T: 46 QT: 389 QTc: 479 Interpretive Statements Sinus rhythm Ventricular bigeminy Left atrial enlargement Borderline intraventricular conduction delay Abnormal R-wave progression, late transition Borderline repolarization abnormality Minimal ST elevation, anterior leads Compared to ECG 08/30/2019 19:33:32 Ventricular premature complex(es) now present Atrial abnormality now present Atrial flutter no longer present.2:1 AV block no longer present Possible ischemia no longer present.ST (T wave) deviation still present Electronically Signed On 09-02-2019 9:36:04 PST by Roc Gonzales CM:EKGRPT:ELECTROCARDIOGRAM REPORT [id number] RUPERT BRODY DRAFT REPORT RUPERT FELIPE DO
--- NOTE | ~2019-08-30 | EKG ---
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1965 Requested By: OSIRIS NASSAR Order Number: [id number] Reading MD: Roc Gonzales Measurements Intervals [place] Rate: 144 P: 0 [place]: 216 QRS: 44 QRSD: 142 T: 32 QT: 394 QTc: 610 Interpretive Statements Atrial Flutter with RVR Prolonged [place] interval Consider right atrial enlargement Nonspecific intraventricular conduction delay Inferior infarct, age indeterminate Compared to ECG 03/21/2019 21:13:35 First degree AV block now present Intraventricular conduction delay now present Myocardial infarct finding now present Sinus rhythm no longer present Prolonged QT interval no longer present Electronically Signed On 08-31-2019 11:14:36 PST by Roc Gonzales CM:EKGRPT:ELECTROCARDIOGRAM REPORT [id number] OSIRIS BLUNT DRAFT REPORT OSIRIS NASSAR MD
--- NOTE | ~2019-08-30 | EKG ---
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1965 Requested By: OSIRIS NASSAR Order Number: [id number] Reading MD: Roc Gonzales Measurements Intervals [place] Rate: 146 P: 94 [place]: 98 QRS: 35 QRSD: 142 T: -57 QT: 353 QTc: 551 Interpretive Statements Sinus tachycardia IVCD, consider atypical RBBB Anterolateral infarct, acute Prolonged QT interval Compared to ECG 03/21/2019 21:13:35 Myocardial infarct finding now present Sinus rhythm no longer present Atrial abnormality no longer present Electronically Signed On 08-31-2019 11:11:40 PST by Roc Gonzales CM:EKGRPT:ELECTROCARDIOGRAM REPORT [id number] OSIRIS BLUNT DRAFT REPORT OSIRIS NASSAR MD
[~2019-08-30 12:40] MED LIST changes: +FUROSEMIDE40 MG PO; +Glimepiride1 MG PO; +LASIX40 MG PO; +LEVAQUIN500 M2 PO; +MAG-OXIDE200 MG PO; +METFORMIN HYD1000 MG PO; +MUCINEX ER600 MG PO; +SYMB160 INH; +VITAMIN B125000 MCG PO
[2019-08-30 13:15] LABS: BASO % 0.5 % (0.0-1.0); EOS # 0.1 10*3/uL (0.0-0.4); EOS % 0.7 % (1.0-4.0); HEMATOCRIT 35.3 % (37.0-47.0); HEMOGLOBIN 11.3 g/dl (12.0-16.0); LYMPH # 0.9 10*3/uL (1.3-4.4); LYMPH % 10.9 % (27.0-41.0); MEAN CELL VOLUME 94.6 fl (81.0-99.0); MEAN CORPUSCULAR HGB 30.3 pg (27.0-31.0); MEAN PLATELET VOLUME 10.3 fl (9.6-12.3); MONO # 0.4 10*3/uL (0.1-1.0); MONO % 5.2 % (3.0-9.0); NEUT # 6.6 10*3/uL (2.3-7.9); NEUT % 82.3 % (47.0-73.0); PLATELET COUNT AUTOMATED 237 10*3/uL (130-400); RED BLOOD COUNT 3.73 10*6/uL (4.10-5.10); RED CELL DISTRI WIDTH 14.8 % (0-14.5); WHITE BLOOD COUNT 8.1 10*3/uL (4.8-10.8)
[2019-08-30 13:26] LABS: ACT PARTIAL THROMBO TIME 22.6 SECONDS (20.0-32.1)
[2019-08-30 13:32] LABS: ALBUMIN 3.5 gm/dl (3.1-4.5); ALKALINE PHOSPHATASE 66 U/L (45-117); BUN 16 mg/dl (7-24); CHLORIDE 100 mmol/L (98-107); CREATININE 0.84 mg/dL (0.55-1.02); SGOT/AST 60 IU/L (3-35); SGPT/ALT 85 U/L (12-78); SODIUM 139 mmol/L (136-145); TOTAL PROTEIN 6.7 gm/dL (6.4-8.2)
[2019-08-30 13:34] LABS: TROPONIN I 0.114 ng/ml (<0.045)
--- NOTE | 2019-08-30 13:34 | NUR ---
CRITICAL LAB: TROPONIN OF 0.114. DR NASSAR NOTIFIED
--- NOTE | 2019-08-30 16:24 | NUR ---
A 54, admitted to 4E, under the services of TOMMY Rodriguez DO with a diagnosis of A FLUTTER. Chief complaint is SOB. Patient arrived via bed from ER. Monitor applied. Initial assessment completed. Vital signs taken and recorded. TOMMY RODRIGUEZ DO notified of admission to the unit. Orders received. See assessment for past medical history, medications and allergies. Patient and/or family oriented to unit. Clothing/patient valuable form completed. LEDA HEREDIA
--- NOTE | 2019-08-30 16:42 | NUR ---
CARDIZEM GTT INCREASED TO 15MG/HR D/T HR MAINTAINING IN THE 140'S AFLUTTER.
[2019-08-30] MEDS ORDERED: POTASSIUM CHLO20 ME4 PO (17:04)
[2019-08-30] MEDS ORDERED: TRELEGY ELLIPT1 EACH INH (17:05)
[2019-08-30] MEDS ORDERED: METOLAZONE2.5 MG PO (17:05)
[2019-08-30] MEDS ORDERED: ARTHRITIS PAIN650 M3 PO (17:06)
[2019-08-30] MEDS ORDERED: 24 HOUR ALLER15.8 ML NAS (17:07)
--- NOTE | 2019-08-30 17:28 | NUR ---
AWARE THAT HOME MEDS ARE VERIFIED.
--- NOTE | 2019-08-30 17:56 | NUR ---
ANSWERING SERVICE CALLED IN REGARDS TO NEW CONSULT. MESSAGE TO BE SENT FOR CALLBACK
--- NOTE | 2019-08-30 18:00 | NUR ---
CALLED BACK, ORDERSW FOR NPO AFTER MIDNIGHT FRO MELISSA GUIDED CARDIOVERSION FOR 08/31. DATTED TO ORDER DIG IV 500MCG NOW AND 250 MCG Q6HR X2 DOSES TOTAL. MATERIALS TECH MADE AWARE.
--- NOTE | 2019-08-30 19:23 | NUR ---
MADE AWARE OF CH TROP LEVEL OF 0.109 AND LA OF 3.2. STATED OK
--- NOTE | 2019-08-30 20:00 | NUR ---
PARTIENT HR AFLUTTER HIGH 90-110'S PRIOR TO AMBULATING TO BATHROOM, IMMEDIATLY INCREASED TO 140'S. WILL CONITNUE TO MONITOR
--- NOTE | 2019-08-30 22:00 | NUR ---
AWARE OF LA RESULTS OF 2.2
[2019-08-31] VITALS (13 sets, daily range): BP systolic 95–175; BP diastolic 51–84
--- NOTE | 2019-08-31 00:20 | NUR ---
IV DIG PUSHED SLOWLY, HR STARTING [address] THROUGH ADMINSTRATION HR DECREASED 70-90'S, AFLUTTER. CARDIZEM GTT DECREASED TO 5MG/HR. HR MAINTAINED 90'S, IV DIG ADMINISTRATION COMPLETED. WILL CONTINUE TO MONITOR
--- NOTE | 2019-08-31 01:52 | NUR ---
PATIENT SELF AMBULATED TO BATHROOM, HR INCREASE TO 140'S. CARDIZEM GTT INCREASED TO 10MG/HR AT THIS TIME. WILL CONTINUE TO MONITOR
--- NOTE | 2019-08-31 04:00 | NUR ---
CARDIZEM GTT FLOWING AT 5MG/HR, SITE ASYMPTOMATIC. MANUAL BP TAKEN. HR 70-90S AFLUTTER
--- NOTE | 2019-08-31 06:00 | NUR ---
Hep Lock discontinued RAN. Site symptomatic, EDEMA/PAINFUL. Pressure applied. Sterile dressing applied. LEDA HEREDIA
--- NOTE | 2019-08-31 06:01 | NUR ---
IV started right wrist with #22 protective cath after 0 attempts. Site prepped with Chloroprep. Sterile dressing applied. Patient tolerated procedure well. LEDA HEREDIA
[2019-08-31 07:30] LABS: ACT PARTIAL THROMBO TIME 23.9 SECONDS (20.0-32.1)
[2019-08-31 07:33] LABS: BASO % 0.4 % (0.0-1.0); EOS # 0.1 10*3/uL (0.0-0.4); EOS % 1.1 % (1.0-4.0); HEMATOCRIT 34.6 % (37.0-47.0); HEMOGLOBIN 11.1 g/dl (12.0-16.0); LYMPH # 0.7 10*3/uL (1.3-4.4); LYMPH % 9.1 % (27.0-41.0); MEAN CELL VOLUME 94.5 fl (81.0-99.0); MEAN CORPUSCULAR HGB 30.3 pg (27.0-31.0); MEAN CORPUSCULAR HGB CONC 32.1 g/dl (33.0-37.0); MONO # 0.5 10*3/uL (0.1-1.0); MONO % 5.8 % (3.0-9.0); NEUT # 6.7 10*3/uL (2.3-7.9); NEUT % 83.3 % (47.0-73.0); PLATELET COUNT AUTOMATED 214 10*3/uL (130-400); RED BLOOD COUNT 3.66 10*6/uL (4.10-5.10); RED CELL DISTRI WIDTH 14.8 % (0-14.5)
[2019-08-31 07:46] LABS: ALBUMIN 3.3 gm/dl (3.1-4.5); BUN 15 mg/dl (7-24); CHLORIDE 100 mmol/L (98-107); CHOLESTEROL 123 mg/dL (<200); CREATININE 0.69 mg/dL (0.55-1.02); PHOSPHOROUS 2.7 mg/dL (2.5-4.9); POTASSIUM 2.9 mmol/L (3.5-5.1); SGOT/AST 52 IU/L (3-35); SGPT/ALT 76 U/L (12-78); SODIUM 139 mmol/L (136-145); TOTAL PROTEIN 6.4 gm/dL (6.4-8.2); TRIGLYCERIDES 86 mg/dl (<150); VLDL CHOLESTEROL 17 mg/dL (6-40)
[2019-08-31 07:53] LABS: ALKALINE PHOSPHATASE 61 U/L (45-117); FREE T4 1.26 ng/dl (0.76-1.46); HDL CHOLESTEROL 69 mg/dl (40-60); LDL CHOLESTEROL 37 mg/dL (9-159)
--- NOTE | 2019-08-31 09:00 | NUR ---
Air Pumper in to talk to patient. Patient states lives at home with . There are few steps in the home. Physician: florinda hennessy [facility] Home health services: none Patient's level of ADLs: INDEPENDENT Patient has working utilities: all working DME: home oxygen, portable tanks from [employer] [facility] Follow-up physician's appointment after d/c:will be made by hospitalist nurse director upon discharge Does patient want to access PORTAL?: no Discharge plan discussed with patient, daughter present, she lives at home with , states she gets around fine, has home oxygen and portable tanks, discussed with her VNA and she declines any services at this time, case management will follow. PUNEET CHAPPELL
[2019-08-31 09:13] LABS: VITAMIN D, 25-HYDROXY 10.6 ng/mL (30-100)
--- NOTE | 2019-08-31 13:08 | NUR ---
PT OFF OF FLOOR FOR SURGERY
--- NOTE | 2019-08-31 15:15 | NUR ---
PT BACK ON FLOOR FROM SURGERY.
--- NOTE | 2019-08-31 15:42 | NUR ---
[facility] CALLED TO NOTIFY LEAD ARCHITECT OF PT'S FREQUENT PVC'S
[2019-08-31 19:24] LABS: BASO # 0.1 10*3/uL (0.0-0.1); BASO % 0.4 % (0.0-1.0); EOS # 0.1 10*3/uL (0.0-0.4); EOS % 0.6 % (1.0-4.0); LYMPH # 0.7 10*3/uL (1.3-4.4); LYMPH % 5.1 % (27.0-41.0); MEAN CELL VOLUME 96.2 fl (81.0-99.0); MEAN CORPUSCULAR HGB 30.4 pg (27.0-31.0); MEAN CORPUSCULAR HGB CONC 31.6 g/dl (33.0-37.0); MEAN PLATELET VOLUME 10.5 fl (9.6-12.3); MONO # 0.7 10*3/uL (0.1-1.0); MONO % 5.3 % (3.0-9.0); NEUT # 11.9 10*3/uL (2.3-7.9); NEUT % 87.9 % (47.0-73.0); RED BLOOD COUNT 3.95 10*6/uL (4.10-5.10); RED CELL DISTRI WIDTH 15.2 % (0-14.5); WHITE BLOOD COUNT 13.5 10*3/uL (4.8-10.8)
[2019-08-31 19:29] LABS: PLATELET COUNT AUTOMATED 299 10*3/uL (130-400)
--- NOTE | 2019-08-31 19:45 | NUR ---
IV started left antecubital with #22 angiocath after 1 attempts. The IV site was prepped with Chloraprep. Heparin lock attached. Sterile dressing applied. Patient tolerated precedure well. Procedure performed according to [facility] policy & procedure. NITESH ZHU
[2019-08-31 20:08] LABS: BUN 16 mg/dl (7-24); CHLORIDE 103 mmol/L (98-107); SODIUM 140 mmol/L (136-145)
[2019-08-31 20:10] LABS: POTASSIUM 3.9 mmol/L (3.5-5.1)
--- NOTE | 2019-08-31 21:30 | NUR ---
CALLED DOWN TO CT SCAN, PT IV IN L AC NOT FUNTIONING. IV REMOVED. NEW IV PLACED- SEE CHARTING.
--- NOTE | 2019-08-31 21:35 | NUR ---
IV started right UPPER ARM with #22 protective cath after 1 attempts. Site prepped with Chloroprep. Sterile dressing applied. Patient tolerated procedure well. NITESH ZHU
--- NOTE | 2019-08-31 22:00 | NUR ---
PATIENT MENTAL STATUS BETER. PATIENT ALERT & ORIENTED X3 AT THIS TIME. AMBULATED TO BATHROOM WITH STANDBY ASSIST. PT HAS NO COMPLAINTS AT THIS TIME. WILL MONITOR.
--- NOTE | 2019-08-31 23:30 | NUR ---
PATIENT BP 76/42 MANUAL, DR FREITAS NOTIFIED, 500 CC BOLUS ORDERED. WILL MONITOR.
[2019-09-01] VITALS: BP 74/46
[2019-09-01 00:30] VITALS: BP 99/56
--- NOTE | 2019-09-01 05:12 | NUR ---
24 HR chart check completed.
[2019-09-01 06:45] LABS: BASO # 0.1 10*3/uL (0.0-0.1); BASO % 0.6 % (0.0-1.0); EOS # 0.1 10*3/uL (0.0-0.4); EOS % 1.3 % (1.0-4.0); HEMOGLOBIN 11.2 g/dl (12.0-16.0); LYMPH # 0.9 10*3/uL (1.3-4.4); LYMPH % 9.9 % (27.0-41.0); MEAN CELL VOLUME 96.4 fl (81.0-99.0); MEAN CORPUSCULAR HGB 30.9 pg (27.0-31.0); MEAN PLATELET VOLUME 10.7 fl (9.6-12.3); MONO # 0.7 10*3/uL (0.1-1.0); MONO % 7.5 % (3.0-9.0); NEUT % 80.4 % (47.0-73.0); PLATELET COUNT AUTOMATED 221 10*3/uL (130-400); RED BLOOD COUNT 3.63 10*6/uL (4.10-5.10); RED CELL DISTRI WIDTH 14.8 % (0-14.5); WHITE BLOOD COUNT 8.8 10*3/uL (4.8-10.8)
[2019-09-01 07:28] LABS: CHLORIDE 99 mmol/L (98-107)
[2019-09-01 07:42] LABS: BUN 19 mg/dl (7-24); CREATININE 0.85 mg/dL (0.55-1.02)
[2019-09-01 08:00] VITALS: BP 109/66
--- NOTE | 2019-09-01 08:00 | NUR ---
IN TO ROOM. PATIENT AWAKE, ALERT AND ORIENTED. NO STATED COMPLAINTS AT THIS TIME. NO SOB NOTED ON 3L NC. PT PLEASANT AND COOPERATIVE WITH ASSESSMENT. BED IN LOWEST LOCKED POSITION AND CALL LIGHT WITHIN REACH. WILL CONTINUE TO MONITOR.
[2019-09-01 08:12] LABS: SODIUM 138 mmol/L (136-145)
[2019-09-01 08:14] LABS: POTASSIUM 2.7 mmol/L (3.5-5.1)
--- NOTE | 2019-09-01 09:00 | NUR ---
case management visits with patient, she states she will return home when medically stable, discussed with her VNA and she declines any home services
[2019-09-01 12:00] VITALS: BP 120/65
--- NOTE | 2019-09-01 12:00 | NUR ---
IN TO ROOM. PT AWAKE, ALERT AND ORIENTED. NO STATED COMPLAINTS AT THIS TIME. NO SOB NOTED ON 3L. DENIES PAIN. BED IN LOWEST LOCKED POSITION AND CALL LIGHT WITHIN REACH. WILL CONTINUE TO MONITOR.
[2019-09-01 16:00] VITALS: BP 101/68
[2019-09-01 20:00] VITALS: BP 104/86
[2019-09-02] VITALS: BP 92/68
[2019-09-02 06:41] LABS: BASO # 0.1 10*3/uL (0.0-0.1); BASO % 0.6 % (0.0-1.0); EOS # 0.1 10*3/uL (0.0-0.4); EOS % 1.2 % (1.0-4.0); HEMATOCRIT 33.3 % (37.0-47.0); HEMOGLOBIN 10.7 g/dl (12.0-16.0); LYMPH # 0.9 10*3/uL (1.3-4.4); LYMPH % 10.2 % (27.0-41.0); MEAN CELL VOLUME 95.7 fl (81.0-99.0); MEAN CORPUSCULAR HGB 30.7 pg (27.0-31.0); MEAN CORPUSCULAR HGB CONC 32.1 g/dl (33.0-37.0); MEAN PLATELET VOLUME 10.5 fl (9.6-12.3); MONO # 0.6 10*3/uL (0.1-1.0); MONO % 6.2 % (3.0-9.0); NEUT # 7.3 10*3/uL (2.3-7.9); NEUT % 81.4 % (47.0-73.0); PLATELET COUNT AUTOMATED 212 10*3/uL (130-400); RED BLOOD COUNT 3.48 10*6/uL (4.10-5.10); RED CELL DISTRI WIDTH 14.8 % (0-14.5)
[2019-09-02 07:21] LABS: BUN 19 mg/dl (7-24); CHLORIDE 99 mmol/L (98-107); CREATININE 0.72 mg/dL (0.55-1.02); POTASSIUM 3.1 mmol/L (3.5-5.1); SODIUM 137 mmol/L (136-145)
[2019-09-02 08:00] VITALS: BP 101/67
--- NOTE | 2019-09-02 09:21 | NUR ---
Spoke with Dr. Dietz regarding order for hold on KCL this am dose. Notified that dose was already given prior to hold order entered. He states that is fine and OK to give 40 meq as well.
[2019-09-02] MEDS ORDERED: VITAMIN D32000 UNI1 PO (09:51)
[2019-09-02] MEDS ORDERED: LISINOPRIL2.5 MG PO (09:51)
[2019-09-02] MEDS ORDERED: METOPROLOL SUCC25 M2 PO (09:51)
[2019-09-02] MEDS ORDERED: XARE20MG PO (09:51)
--- NOTE | 2019-09-02 10:28 | NUR ---
Discharge instructions reviewed with patient/family. Patient receptive and verbalizes understanding. Follow-up care arranged. Written instructions given to patient/DAUGHTER. Monitor and iv removed. Notified NAGI Campbell that pt is getting dressed and when she puts light on she can leave. EB GOLD
--- NOTE | 2019-09-02 10:50 | NUR ---
Pt dc in care of daughter via wheelchair. DC with belongings. Pt had portable o2 tank from home that daughter brought in.
== END 2019-09-02 10:50 | disposition home or self-care (01) | DRG 308 ==
LOC: ED 12:40 → EDHOLD 13:42 → 4E 13:42
PROVIDERS: Emergency Medicine; Family Medicine; Internal Medicine; ADMIT Emergency Medicine
PROC: B24BZZ4 Ultrasonography of Heart with Aorta, Transesophageal (ICD-10-PCS; principal; 2019-08-31)
PROC: 5A2204Z Restoration of Cardiac Rhythm, Single (ICD-10-PCS; principal; 2019-08-31)
DX: I48.91 Unspecified atrial fibrillation (principal); I50.43 Acute on chronic combined systolic (congestive) and diastolic (congestive) heart failure; E87.2 Acidosis; J96.10 Chronic respiratory failure, unspecified whether with hypoxia or hypercapnia; Z68.41 Body mass index [BMI] 40.0-44.9, adult; I48.92 Unspecified atrial flutter; D64.9 Anemia, unspecified; J44.9 Chronic obstructive pulmonary disease, unspecified; I11.0 Hypertensive heart disease with heart failure; E78.5 Hyperlipidemia, unspecified; G47.00 Insomnia, unspecified; E66.01 Morbid (severe) obesity due to excess calories; G25.81 Restless legs syndrome; E87.6 Hypokalemia; I08.1 Rheumatic disorders of both mitral and tricuspid valves; E11.65 Type 2 diabetes mellitus with hyperglycemia; R74.0 Nonspecific elevation of levels of transaminase and lactic acid dehydrogenase [LDH]; Z87.891 Personal history of nicotine dependence; Z79.899 Other long term (current) drug therapy; Z98.891 History of uterine scar from previous surgery; Z82.49 Family history of ischemic heart disease and other diseases of the circulatory system

== ENCOUNTER → 2019-12-16 | Outpatient (CLI) | payer OTHER ==
[~2019-12-16] MED LIST changes: +24 HOUR ALLER15.8 ML NAS; +ARTHRITIS PAIN650 M3 PO; +LISINOPRIL2.5 MG PO; +METOLAZONE2.5 MG PO; +METOPROLOL SUCC25 M2 PO; +POTASSIUM CHLO20 ME4 PO; +TRELEGY ELLIPT1 EACH INH; +VITAMIN D32000 UNI1 PO; +XARE20MG PO
== END | disposition home or self-care (01) ==
LOC: CARD 10:24
DX: I08.1 Rheumatic disorders of both mitral and tricuspid valves (principal); I50.22 Chronic systolic (congestive) heart failure; I42.8 Other cardiomyopathies

== ENCOUNTER 2020-02-16 17:42 | Emergency (ER) | payer OTHER ==
[~2020-02-16] VITALS: Ht 167.6 cm; Wt 122.5 kg
== END 2020-02-16 20:21 | disposition short-term general hospital (02) ==
LOC: ED 17:42
DX: S42.301A Unspecified fracture of shaft of humerus, right arm, initial encounter for closed fracture (principal); I11.0 Hypertensive heart disease with heart failure; I50.9 Heart failure, unspecified; J44.9 Chronic obstructive pulmonary disease, unspecified; E11.9 Type 2 diabetes mellitus without complications; F17.200 Nicotine dependence, unspecified, uncomplicated; Z79.899 Other long term (current) drug therapy; Z87.891 Personal history of nicotine dependence; W01.0XXA Fall on same level from slipping, tripping and stumbling without subsequent striking against object, initial encounter; Y93.89 Activity, other specified; Y92.098 Other place in other non-institutional residence as the place of occurrence of the external cause; Y99.8 Other external cause status

== ENCOUNTER 2020-11-06 02:10 | Emergency (ER) | payer OTHER ==
[~2020-11-06] VITALS: Ht 167.6 cm; Wt 81.2 kg
[2020-11-06 02:37] LABS: BASO # 0.1 10*3/uL (0.0-0.1); BASO % 0.5 % (0.0-1.0); EOS # 0.2 10*3/uL (0.0-0.4); EOS % 1.9 % (1.0-4.0); HEMATOCRIT 42.5 % (37.0-47.0); LYMPH # 1.3 10*3/uL (1.3-4.4); LYMPH % 11.8 % (27.0-41.0); MEAN CELL VOLUME 97.3 fl (81.0-99.0); MEAN CORPUSCULAR HGB 31.6 pg (27.0-31.0); MEAN CORPUSCULAR HGB CONC 32.5 g/dl (33.0-37.0); MEAN PLATELET VOLUME 9.3 fl (9.6-12.3); MONO # 0.7 10*3/uL (0.1-1.0); MONO % 5.8 % (3.0-9.0); NEUT % 79.6 % (47.0-73.0); PLATELET COUNT AUTOMATED 260 10*3/uL (130-400); RED BLOOD COUNT 4.37 10*6/uL (4.10-5.10); RED CELL DISTRI WIDTH 14.8 % (0-14.5); WHITE BLOOD COUNT 11.4 10*3/uL (4.8-10.8)
[2020-11-06 02:54] LABS: ALBUMIN 3.5 gm/dl (3.1-4.5); ALKALINE PHOSPHATASE 97 U/L (45-117); BUN 13 mg/dl (7-24); CHLORIDE 111 mmol/L (98-107); CREATININE 0.88 mg/dL (0.55-1.02); LIPASE 103 U/L (73-393); POTASSIUM 4.1 mmol/L (3.5-5.1); SGOT/AST 18 IU/L (3-35); SGPT/ALT 47 U/L (12-78); SODIUM 140 mmol/L (136-145); TOTAL PROTEIN 7.2 gm/dL (6.4-8.2)
[2020-11-06 03:01] LABS: BILIRUBIN Negative (Negative); BLOOD 3+ (Negative); CLARITY Cloudy (Clear); COLOR Yellow (Yellow); GLUCOSE 3+ (Negative); KETONE Negative (Negative); LEUKO ESTERASE Negative (Negative); NITRITE Positive (Negative); SPECIFIC GRAVITY >= 1.030 (1.001-1.030); UROBILINOGEN 0.2 E.U./dl (0.0-1.0)
[2020-11-06 03:17] LABS: BACTERIA 4+; RBC 31-40 rbc/hpf (0-2)
[2020-11-06] MEDS ORDERED: CIPRO500 MG PO (03:32)
== END 2020-11-06 04:10 | disposition home or self-care (01) ==
LOC: ED 02:10
PROVIDERS: Internal Medicine
DX: N39.0 Urinary tract infection, site not specified (principal); K59.00 Constipation, unspecified; E11.9 Type 2 diabetes mellitus without complications; E66.9 Obesity, unspecified; J44.9 Chronic obstructive pulmonary disease, unspecified; F32.9 Major depressive disorder, single episode, unspecified; I11.0 Hypertensive heart disease with heart failure; I50.9 Heart failure, unspecified; Z79.899 Other long term (current) drug therapy; Z98.890 Other specified postprocedural states; Z87.891 Personal history of nicotine dependence

== ENCOUNTER 2021-05-09 11:10 | Inpatient (IN) | payer OTHER ==
[~2021-05-09] VITALS: Ht 167.6 cm; Wt 120.3 kg
[~2021-05-09 11:10] MED LIST changes: +CIPRO500 MG PO; -METOLAZONE2.5 MG PO; +Zaroxolyn,Diul2.5 MG PO
[2021-05-09 11:16] VITALS: BP 110/52
[2021-05-09 11:50] LABS: BASO % 0.2 % (0.0-1.0); EOS % 0.1 % (1.0-4.0); HEMATOCRIT 28.8 % (37.0-47.0); LYMPH # 0.7 10*3/uL (1.3-4.4); LYMPH % 4.4 % (27.0-41.0); MEAN CELL VOLUME 100.7 fl (81.0-99.0); MEAN CORPUSCULAR HGB 32.5 pg (27.0-31.0); MEAN CORPUSCULAR HGB CONC 32.3 g/dl (33.0-37.0); MEAN PLATELET VOLUME 9.1 fl (9.6-12.3); MONO # 0.9 10*3/uL (0.1-1.0); MONO % 5.4 % (3.0-9.0); NEUT # 14.4 10*3/uL (2.3-7.9); NEUT % 89.2 % (47.0-73.0); PLATELET COUNT AUTOMATED 244 10*3/uL (130-400); RED BLOOD COUNT 2.86 10*6/uL (4.10-5.10); WHITE BLOOD COUNT 16.1 10*3/uL (4.8-10.8)
[2021-05-09 12:00] VITALS: BP 103/56
[2021-05-09 12:08] LABS: ALBUMIN 2.3 gm/dl (3.1-4.5); ALKALINE PHOSPHATASE 109 U/L (45-117); BUN 22 mg/dl (7-24); CHLORIDE 110 mmol/L (98-107); CREATININE 1.52 mg/dL (0.55-1.02); LIPASE 55 U/L (73-393); POTASSIUM 3.8 mmol/L (3.5-5.1); SGOT/AST 14 IU/L (3-35); SGPT/ALT 21 U/L (12-78); SODIUM 139 mmol/L (136-145); TOTAL PROTEIN 6.6 gm/dL (6.4-8.2)
[2021-05-09 12:11] LABS: TROPONIN I < 0.015 ng/ml (<0.045)
[2021-05-09 12:41] LABS: BILIRUBIN Negative (Negative); BLOOD 3+ (Negative); CLARITY Turbid (Clear); COLOR Yellow (Yellow); GLUCOSE 3+ (Negative); KETONE Trace (Negative); LEUKO ESTERASE 2+ (Negative); NITRITE Negative (Negative); PH 5.5 (4.5-8.0); SPECIFIC GRAVITY >= 1.030 (1.001-1.030)
[2021-05-09 13:08] LABS: WBC TNTC wbc/hpf (0-5)
[2021-05-09 13:09] LABS: BACTERIA 4+; YEAST TRACE
[2021-05-09 18:13] VITALS: BP 103/66
[2021-05-09 18:30] VITALS: BP 103/56
[2021-05-09] MEDS ORDERED: LIPITOR40 MG PO (18:56)
[2021-05-09] MEDS ORDERED: AMARYL1 M1 PO (18:58)
[2021-05-09] MEDS ORDERED: JARDIANCE25 MG PO (18:58)
[2021-05-09] MEDS ORDERED: TIZANIDINE2 MG PO (19:31)
[2021-05-09] MEDS ORDERED: GABAPENTIN100 M2 PO (19:55)
[2021-05-09] MEDS ORDERED: METOPROLOL SUCC50 M1 PO (19:55)
[2021-05-09] MEDS ORDERED: BUPROPION HCL150 M1 PO (19:56)
[2021-05-09] MEDS ORDERED: NATURE'S BLEND F1 MG PO (19:57)
[2021-05-09] MEDS ORDERED: POTASSIUM600 MG PO (19:59)
[2021-05-09 20:00] VITALS: BP 113/67
[2021-05-10] VITALS: BP 125/72
[2021-05-10 03:21] LABS: BASO % 0.2 % (0.0-1.0); EOS % 0.1 % (1.0-4.0); HEMATOCRIT 25.9 % (37.0-47.0); LYMPH # 0.5 10*3/uL (1.3-4.4); LYMPH % 4.7 % (27.0-41.0); MEAN CELL VOLUME 103.6 fl (81.0-99.0); MEAN CORPUSCULAR HGB 31.6 pg (27.0-31.0); MEAN CORPUSCULAR HGB CONC 30.5 g/dl (33.0-37.0); MEAN PLATELET VOLUME 9.9 fl (9.6-12.3); MONO # 0.7 10*3/uL (0.1-1.0); MONO % 6.1 % (3.0-9.0); NEUT % 87.9 % (47.0-73.0); PLATELET COUNT AUTOMATED 229 10*3/uL (130-400); RED CELL DISTRI WIDTH 15.1 % (0-14.5); WHITE BLOOD COUNT 11.4 10*3/uL (4.8-10.8)
[2021-05-10 03:40] LABS: ALBUMIN 1.9 gm/dl (3.1-4.5); CREATININE 1.25 mg/dL (0.55-1.02); POTASSIUM 3.5 mmol/L (3.5-5.1); TOTAL PROTEIN 5.9 gm/dL (6.4-8.2)
[2021-05-10 03:46] LABS: THYROID STIM HORMONE (HS) 0.318 uIU/ml (0.358-4.75)
[2021-05-10 08:00] VITALS: BP 119/74; BP 122/74
== END 2021-05-10 10:02 | disposition short-term general hospital (02) | DRG 871 ==
LOC: ED 11:10 → EDHOLD 13:59 → 5E 18:05
PROVIDERS: Physician Assistant; Student in an Organized Health Care Education/Training Program; ADMIT Family Medicine; ATTEND Family Medicine
DX: A41.9 Sepsis, unspecified organism (principal); E43 Unspecified severe protein-calorie malnutrition; N17.0 Acute kidney failure with tubular necrosis; N12 Tubulo-interstitial nephritis, not specified as acute or chronic; E87.2 Acidosis; I48.92 Unspecified atrial flutter; I50.20 Unspecified systolic (congestive) heart failure; R65.20 Severe sepsis without septic shock; N13.6 Pyonephrosis; D53.9 Nutritional anemia, unspecified; E11.9 Type 2 diabetes mellitus without complications; E66.9 Obesity, unspecified; G25.81 Restless legs syndrome; I11.0 Hypertensive heart disease with heart failure; J44.9 Chronic obstructive pulmonary disease, unspecified; R79.89 Other specified abnormal findings of blood chemistry; E87.8 Other disorders of electrolyte and fluid balance, not elsewhere classified; E11.65 Type 2 diabetes mellitus with hyperglycemia; E55.9 Vitamin D deficiency, unspecified; B96.89 Other specified bacterial agents as the cause of diseases classified elsewhere; Z98.891 History of uterine scar from previous surgery; Z87.891 Personal history of nicotine dependence; Z82.49 Family history of ischemic heart disease and other diseases of the circulatory system; Z83.6 Family history of other diseases of the respiratory system; Z87.81 Personal history of (healed) traumatic fracture; Z68.39 Body mass index [BMI] 39.0-39.9, adult

== ENCOUNTER 2021-06-16 23:35 | Emergency (ER) | payer SELFPAY ==
[~2021-06-16] VITALS: Ht 172.7 cm; Wt 108.9 kg
[~2021-06-16 23:35] MED LIST changes: +AMARYL1 M1 PO; +BUPROPION HCL150 M1 PO; +GABAPENTIN100 M2 PO; +JARDIANCE25 MG PO; +LIPITOR40 MG PO; +METOPROLOL SUCC50 M1 PO; +NATURE'S BLEND F1 MG PO; +POTASSIUM600 MG PO; +TIZANIDINE2 MG PO
[2021-06-17 00:39] LABS: BASO % 0.3 % (0.0-1.0); EOS # 0.3 10*3/uL (0.0-0.4); EOS % 2.9 % (1.0-4.0); HEMATOCRIT 31.7 % (37.0-47.0); LYMPH # 1.4 10*3/uL (1.3-4.4); LYMPH % 15.7 % (27.0-41.0); MEAN CELL VOLUME 104.6 fl (81.0-99.0); MEAN CORPUSCULAR HGB 32.7 pg (27.0-31.0); MEAN CORPUSCULAR HGB CONC 31.2 g/dl (33.0-37.0); MEAN PLATELET VOLUME 9.7 fl (9.6-12.3); MONO # 0.7 10*3/uL (0.1-1.0); MONO % 8.3 % (3.0-9.0); NEUT # 6.2 10*3/uL (2.3-7.9); NEUT % 72.3 % (47.0-73.0); PLATELET COUNT AUTOMATED 220 10*3/uL (130-400); RED BLOOD COUNT 3.03 10*6/uL (4.10-5.10); RED CELL DISTRI WIDTH 15.9 % (0-14.5); WHITE BLOOD COUNT 8.6 10*3/uL (4.8-10.8)
[2021-06-17 00:57] LABS: ALKALINE PHOSPHATASE 75 U/L (45-117); BUN 18 mg/dl (7-24); CHLORIDE 109 mmol/L (98-107); CREATININE 1.02 mg/dL (0.55-1.02); POTASSIUM 3.6 mmol/L (3.5-5.1); SGOT/AST 21 IU/L (3-35); SGPT/ALT 32 U/L (12-78); SODIUM 138 mmol/L (136-145); TOTAL PROTEIN 6.7 gm/dL (6.4-8.2)
[2021-06-17 01:00] LABS: TROPONIN I < 0.015 ng/ml (<0.045)
[2021-06-17 03:17] LABS: BILIRUBIN Negative (Negative); BLOOD 2+ (Negative); CLARITY Turbid (Clear); COLOR Yellow (Yellow); GLUCOSE 1+ (Negative); KETONE Trace (Negative); LEUKO ESTERASE 3+ (Negative); NITRITE Negative (Negative)
[2021-06-17 03:29] LABS: BACTERIA 3+; RBC 21-30 rbc/hpf (0-2); WBC TNTC wbc/hpf (0-5)
[2021-06-17] MEDS ORDERED: AUGMENTIN 875875 MG PO (04:41)
== END 2021-06-17 04:51 | disposition home or self-care (01) ==
LOC: ED 23:35
PROVIDERS: Emergency Medicine
DX: N39.0 Urinary tract infection, site not specified (principal); J44.9 Chronic obstructive pulmonary disease, unspecified; E66.9 Obesity, unspecified; E11.9 Type 2 diabetes mellitus without complications; I11.0 Hypertensive heart disease with heart failure; I50.9 Heart failure, unspecified; Z87.891 Personal history of nicotine dependence; Z88.8 Allergy status to other drugs, medicaments and biological substances; Z79.899 Other long term (current) drug therapy

== ENCOUNTER → 2021-07-12 | Outpatient (CLI) | payer SELFPAY ==
[~2021-07-12] MED LIST changes: +AUGMENTIN 875875 MG PO
== END | disposition home or self-care (01) ==
LOC: RESCLI 02:35
PROVIDERS: ATTEND Internal Medicine Nephrology
DX: R19.7 Diarrhea, unspecified (principal); N20.0 Calculus of kidney; I11.0 Hypertensive heart disease with heart failure; I50.20 Unspecified systolic (congestive) heart failure; I48.92 Unspecified atrial flutter; R06.02 Shortness of breath; M79.673 Pain in unspecified foot; E11.69 Type 2 diabetes mellitus with other specified complication; E66.9 Obesity, unspecified; G25.81 Restless legs syndrome; J44.9 Chronic obstructive pulmonary disease, unspecified; G89.29 Other chronic pain; E55.9 Vitamin D deficiency, unspecified; F17.210 Nicotine dependence, cigarettes, uncomplicated; Z79.899 Other long term (current) drug therapy; Z72.89 Other problems related to lifestyle; Z98.890 Other specified postprocedural states

== ENCOUNTER → 2021-07-13 | Outpatient (CLI) | payer SELFPAY ==
[2021-07-13 12:04] LABS: ALBUMIN 3.2 gm/dl (3.1-4.5); BUN 19 mg/dl (7-24); CHLORIDE 119 mmol/L (98-107); CREATININE 0.81 mg/dL (0.55-1.02); POTASSIUM 4.5 mmol/L (3.5-5.1); SGPT/ALT 36 U/L (12-78); SODIUM 144 mmol/L (136-145)
[2021-07-13 12:06] LABS: ALKALINE PHOSPHATASE 89 U/L (45-117); SGOT/AST 14 IU/L (3-35); TOTAL PROTEIN 6.7 gm/dL (6.4-8.2)
== END | disposition home or self-care (01) ==
LOC: LAB 11:26
PROVIDERS: Student in an Organized Health Care Education/Training Program; ATTEND Internal Medicine
DX: E55.9 Vitamin D deficiency, unspecified (principal); E11.69 Type 2 diabetes mellitus with other specified complication

== ENCOUNTER → 2021-08-11 | Outpatient (CLI) | payer SELFPAY | END | disposition home or self-care (01) | LOC: RESCLI 02:37 | PROVIDERS: ATTEND Internal Medicine | DX: I48.92 Unspecified atrial flutter (principal); E11.69 Type 2 diabetes mellitus with other specified complication; E55.9 Vitamin D deficiency, unspecified; J44.9 Chronic obstructive pulmonary disease, unspecified; G25.81 Restless legs syndrome; I11.0 Hypertensive heart disease with heart failure; I50.20 Unspecified systolic (congestive) heart failure; G89.29 Other chronic pain; M15.9 Polyosteoarthritis, unspecified; E56.9 Vitamin deficiency, unspecified; J30.2 Other seasonal allergic rhinitis; Z79.899 Other long term (current) drug therapy; Z79.84 Long term (current) use of oral hypoglycemic drugs ==

== ENCOUNTER → 2022-03-09 | Outpatient (CLI) | payer SELFPAY | END | disposition home or self-care (01) | LOC: RESCLI 01:25 | PROVIDERS: ATTEND Internal Medicine | DX: N20.0 Calculus of kidney (principal); I48.92 Unspecified atrial flutter; I50.20 Unspecified systolic (congestive) heart failure; E11.69 Type 2 diabetes mellitus with other specified complication; J44.9 Chronic obstructive pulmonary disease, unspecified; G25.81 Restless legs syndrome; G89.29 Other chronic pain; E55.9 Vitamin D deficiency, unspecified; E27.8 Other specified disorders of adrenal gland; Z79.899 Other long term (current) drug therapy; Z88.8 Allergy status to other drugs, medicaments and biological substances; I11.0 Hypertensive heart disease with heart failure ==

== ENCOUNTER → 2022-03-22 | Outpatient (CLI) | payer MEDICARE ==
[2022-03-22 15:51] LABS: CREATININE 1.23 mg/dL (0.55-1.02); POTASSIUM 4.3 mmol/L (3.5-5.1); TOTAL PROTEIN 7.3 gm/dL (6.4-8.2)
== END | disposition home or self-care (01) ==
LOC: LAB 15:09
PROVIDERS: ATTEND Student in an Organized Health Care Education/Training Program
DX: I10 Essential (primary) hypertension (principal)

== ENCOUNTER → 2022-03-27 | Outpatient (CLI) | payer MEDICARE | END | disposition home or self-care (01) | LOC: CT 09:48 | PROVIDERS: ATTEND Student in an Organized Health Care Education/Training Program | DX: E27.8 Other specified disorders of adrenal gland (principal) ==

== ENCOUNTER → 2022-12-25 | Outpatient (CLI) | payer MEDICARE ==
[2022-12-25 17:35] LABS: BASO % 0.4 % (0.0-1.0); EOS # 0.2 10*3/uL (0.0-0.4); HEMATOCRIT 41.7 % (37.0-47.0); LYMPH # 1.8 10*3/uL (1.3-4.4); LYMPH % 18.7 % (27.0-41.0); MEAN CELL VOLUME 96.5 fl (81.0-99.0); MEAN CORPUSCULAR HGB 31.5 pg (27.0-31.0); MEAN CORPUSCULAR HGB CONC 32.6 g/dl (33.0-37.0); MEAN PLATELET VOLUME 9.3 fl (9.6-12.3); MONO # 0.6 10*3/uL (0.1-1.0); MONO % 5.9 % (3.0-9.0); NEUT % 72.5 % (47.0-73.0); PLATELET COUNT AUTOMATED 263 10*3/uL (130-400); RED BLOOD COUNT 4.32 10*6/uL (4.10-5.10); RED CELL DISTRI WIDTH 14.8 % (0-14.5); WHITE BLOOD COUNT 9.7 10*3/uL (4.8-10.8)
[2022-12-25 18:02] LABS: POTASSIUM 4.9 mmol/L (3.4-5.1); TOTAL PROTEIN 7.1 gm/dL (6.0-8.0)
== END | disposition home or self-care (01) ==
LOC: RESCLI 07:47
PROVIDERS: Family Medicine; ATTEND Student in an Organized Health Care Education/Training Program
DX: I48.92 Unspecified atrial flutter (principal); E11.69 Type 2 diabetes mellitus with other specified complication; I10 Essential (primary) hypertension; I11.0 Hypertensive heart disease with heart failure; I50.20 Unspecified systolic (congestive) heart failure; G62.9 Polyneuropathy, unspecified; E78.5 Hyperlipidemia, unspecified; G25.81 Restless legs syndrome; E66.9 Obesity, unspecified; E56.9 Vitamin deficiency, unspecified; M15.9 Polyosteoarthritis, unspecified; E03.9 Hypothyroidism, unspecified; M25.569 Pain in unspecified knee; M62.838 Other muscle spasm; F17.200 Nicotine dependence, unspecified, uncomplicated; E53.8 Deficiency of other specified B group vitamins; J44.0 Chronic obstructive pulmonary disease with (acute) lower respiratory infection; J30.9 Allergic rhinitis, unspecified; Z98.890 Other specified postprocedural states; Z88.8 Allergy status to other drugs, medicaments and biological substances; Z82.49 Family history of ischemic heart disease and other diseases of the circulatory system; Z79.2 Long term (current) use of antibiotics; Z79.84 Long term (current) use of oral hypoglycemic drugs; Z79.01 Long term (current) use of anticoagulants; Z79.899 Other long term (current) drug therapy

== ENCOUNTER → 2022-12-27 | Outpatient (CLI) | payer MEDICARE | END | disposition home or self-care (01) | LOC: RAD 15:10 | PROVIDERS: ATTEND Internal Medicine | DX: M17.11 Unilateral primary osteoarthritis, right knee (principal); M25.761 Osteophyte, right knee ==

== ENCOUNTER → 2023-01-22 | Outpatient (CLI) | payer MEDICARE | END | disposition home or self-care (01) | LOC: RESCLI 01:24 | PROVIDERS: ATTEND Internal Medicine | DX: I48.92 Unspecified atrial flutter (principal); J44.9 Chronic obstructive pulmonary disease, unspecified; F17.200 Nicotine dependence, unspecified, uncomplicated; G25.81 Restless legs syndrome; Z88.8 Allergy status to other drugs, medicaments and biological substances; Z98.890 Other specified postprocedural states; Z79.84 Long term (current) use of oral hypoglycemic drugs; Z79.01 Long term (current) use of anticoagulants; Z79.899 Other long term (current) drug therapy ==

== ENCOUNTER → 2023-06-04 | Outpatient (CLI) | payer MEDICARE ==
[2023-06-04 10:19] LABS: BASO # 0.1 10*3/uL (0.0-0.1); BASO % 0.5 % (0.0-1.0); EOS # 0.2 10*3/uL (0.0-0.4); EOS % 2.1 % (1.0-4.0); HEMATOCRIT 38.4 % (37.0-47.0); LYMPH # 1.4 10*3/uL (1.3-4.4); LYMPH % 14.5 % (27.0-41.0); MEAN CELL VOLUME 99.2 fl (81.0-99.0); MEAN CORPUSCULAR HGB 33.1 pg (27.0-31.0); MEAN CORPUSCULAR HGB CONC 33.3 g/dl (33.0-37.0); MEAN PLATELET VOLUME 9.3 fl (9.6-12.3); MONO # 0.5 10*3/uL (0.1-1.0); MONO % 5.2 % (3.0-9.0); NEUT # 7.4 10*3/uL (2.3-7.9); NEUT % 77.3 % (47.0-73.0); PLATELET COUNT AUTOMATED 231 10*3/uL (130-400); RED BLOOD COUNT 3.87 10*6/uL (4.10-5.10); WHITE BLOOD COUNT 9.6 10*3/uL (4.8-10.8)
[2023-06-04 10:57] LABS: ALKALINE PHOSPHATASE 79 U/L (46-116); BUN 15 mg/dl (9-23); CHLORIDE 109 mmol/L (98-107); CHOLESTEROL 170 mg/dL (<200); LDL CHOLESTEROL 55 mg/dL (9-159); POTASSIUM 5.4 mmol/L (3.4-5.1); SGPT/ALT 42 U/L (10-49); TOTAL PROTEIN 6.7 gm/dL (6.0-8.0); TRIGLYCERIDES 240 mg/dl (<150)
[2023-06-04 10:58] LABS: URINE CREATININE RANDOM 125.13 mg/dL
[2023-06-04 11:25] LABS: VITAMIN D, 25-HYDROXY 45.4 ng/mL (30-100)
== END | disposition home or self-care (01) ==
LOC: RESCLI 02:15
PROVIDERS: Student in an Organized Health Care Education/Training Program; ATTEND Family Medicine
DX: I48.92 Unspecified atrial flutter (principal); E03.9 Hypothyroidism, unspecified; E11.69 Type 2 diabetes mellitus with other specified complication; G62.9 Polyneuropathy, unspecified; I11.0 Hypertensive heart disease with heart failure; I50.20 Unspecified systolic (congestive) heart failure; E78.5 Hyperlipidemia, unspecified; G25.81 Restless legs syndrome; E66.9 Obesity, unspecified; M15.9 Polyosteoarthritis, unspecified; M25.569 Pain in unspecified knee; F17.200 Nicotine dependence, unspecified, uncomplicated; M62.838 Other muscle spasm; E53.8 Deficiency of other specified B group vitamins; E56.9 Vitamin deficiency, unspecified; J44.9 Chronic obstructive pulmonary disease, unspecified; Z12.31 Encounter for screening mammogram for malignant neoplasm of breast; G47.30 Sleep apnea, unspecified; Z12.11 Encounter for screening for malignant neoplasm of colon; Z88.8 Allergy status to other drugs, medicaments and biological substances; Z82.49 Family history of ischemic heart disease and other diseases of the circulatory system; Z98.890 Other specified postprocedural states; Z79.01 Long term (current) use of anticoagulants; Z79.84 Long term (current) use of oral hypoglycemic drugs; Z79.899 Other long term (current) drug therapy

== ENCOUNTER → 2023-06-26 | Outpatient (CLI) | payer MEDICARE | END | disposition home or self-care (01) | LOC: MAMMO 01:05 | PROVIDERS: ATTEND Internal Medicine | DX: Z12.31 Encounter for screening mammogram for malignant neoplasm of breast (principal); N63.10 Unspecified lump in the right breast, unspecified quadrant; N63.20 Unspecified lump in the left breast, unspecified quadrant; N64.9 Disorder of breast, unspecified ==

== ENCOUNTER → 2023-09-03 | Outpatient (CLI) | payer MEDICARE ==
[2023-09-03 11:39] LABS: POTASSIUM 5.2 mmol/L (3.4-5.1)
== END | disposition home or self-care (01) ==
LOC: RESCLI 01:38
PROVIDERS: Student in an Organized Health Care Education/Training Program; ATTEND Emergency Medicine
DX: E87.5 Hyperkalemia (principal)

== ENCOUNTER → 2023-09-17 | Outpatient (CLI) | payer MEDICARE | END | disposition home or self-care (01) | LOC: US 08:36 | PROVIDERS: ATTEND Family Medicine | DX: N64.9 Disorder of breast, unspecified (principal) ==

== ENCOUNTER → 2023-12-17 | Outpatient (CLI) | payer MEDICARE ==
[2023-12-17 14:09] LABS: BILIRUBIN Negative (Negative); BLOOD Negative (Negative); CLARITY Cloudy (Clear); COLOR Yellow (Yellow); GLUCOSE 3+ (Negative); KETONE Trace (Negative); LEUKO ESTERASE 2+ (Negative); NITRITE Negative (Negative); SPECIFIC GRAVITY >= 1.030 (1.001-1.030)
[2023-12-17 15:28] LABS: BACTERIA 4+; WBC TNTC wbc/hpf (0-5)
== END | disposition home or self-care (01) ==
LOC: LAB 12:59
PROVIDERS: ATTEND Student in an Organized Health Care Education/Training Program
DX: R35.0 Frequency of micturition (principal)

== ENCOUNTER → 2024-03-13 | Outpatient (CLI) | payer MEDICARE ==
[2024-03-13 12:24] LABS: TOTAL PROTEIN 6.5 gm/dL (6.0-8.0)
== END | disposition home or self-care (01) ==
LOC: LAB 11:10
PROVIDERS: Student in an Organized Health Care Education/Training Program; ATTEND Internal Medicine
DX: E11.69 Type 2 diabetes mellitus with other specified complication (principal)

== ENCOUNTER → 2024-05-26 | Outpatient (CLI) | payer MEDICARE ==
[2024-05-26 14:59] LABS: BILIRUBIN Negative (Negative); BLOOD Negative (Negative); CLARITY Cloudy (Clear); COLOR Yellow (Yellow); GLUCOSE 3+ (Negative); KETONE Negative (Negative); LEUKO ESTERASE 2+ (Negative); NITRITE Positive (Negative); PH 5.5 (4.5-8.0); SPECIFIC GRAVITY >= 1.030 (1.001-1.030); UROBILINOGEN 0.2 E.U./dl (0.0-1.0)
[2024-05-26 15:00] LABS: POTASSIUM 5.1 mmol/L (3.4-5.1)
[2024-05-26 15:25] LABS: BACTERIA 2+; WBC TNTC wbc/hpf (0-5)
== END | disposition home or self-care (01) ==
LOC: RESCLI 13:12
PROVIDERS: ATTEND Student in an Organized Health Care Education/Training Program
DX: E11.69 Type 2 diabetes mellitus with other specified complication (principal); J44.9 Chronic obstructive pulmonary disease, unspecified; I50.20 Unspecified systolic (congestive) heart failure; I11.0 Hypertensive heart disease with heart failure; G25.81 Restless legs syndrome; I48.92 Unspecified atrial flutter; Z79.899 Other long term (current) drug therapy; Z88.8 Allergy status to other drugs, medicaments and biological substances; E56.9 Vitamin deficiency, unspecified; M15.9 Polyosteoarthritis, unspecified; F17.200 Nicotine dependence, unspecified, uncomplicated; E11.40 Type 2 diabetes mellitus with diabetic neuropathy, unspecified; M62.838 Other muscle spasm; N39.0 Urinary tract infection, site not specified; R32 Unspecified urinary incontinence; Z98.890 Other specified postprocedural states

== ENCOUNTER → 2024-07-18 | Outpatient (CLI) | payer MEDICARE ==
[2024-07-18 10:11] LABS: BASO # 0.1 10*3/uL (0.0-0.1); BASO % 0.5 % (0.0-1.0); EOS # 0.3 10*3/uL (0.0-0.4); EOS % 2.4 % (1.0-4.0); HEMATOCRIT 37.7 % (37.0-47.0); LYMPH # 1.3 10*3/uL (1.3-4.4); LYMPH % 12.9 % (27.0-41.0); MEAN CORPUSCULAR HGB 32.5 pg (27.0-31.0); MEAN CORPUSCULAR HGB CONC 31.6 g/dl (33.0-37.0); MEAN PLATELET VOLUME 9.4 fl (9.6-12.3); MONO # 0.6 10*3/uL (0.1-1.0); MONO % 5.7 % (3.0-9.0); NEUT # 8.1 10*3/uL (2.3-7.9); PLATELET COUNT AUTOMATED 283 10*3/uL (130-400); RED BLOOD COUNT 3.66 10*6/uL (4.10-5.10); WHITE BLOOD COUNT 10.4 10*3/uL (4.8-10.8)
[2024-07-18 10:47] LABS: POTASSIUM 4.6 mmol/L (3.4-5.1); TOTAL PROTEIN 6.8 gm/dL (6.0-8.0)
[2024-07-18 13:02] LABS: VITAMIN D, 25-HYDROXY 31.4 ng/mL (30-100)
== END | disposition home or self-care (01) ==
LOC: LAB 09:51
PROVIDERS: ATTEND Psychiatry & Neurology Neurology
DX: G25.81 Restless legs syndrome (principal); G35 Multiple sclerosis; E11.69 Type 2 diabetes mellitus with other specified complication

== ENCOUNTER → 2024-07-31 | Outpatient (CLI) | payer MEDICARE | END | disposition home or self-care (01) | LOC: LAB 11:04 | PROVIDERS: ATTEND Psychiatry & Neurology Neurology | DX: G35 Multiple sclerosis (principal) ==

== ENCOUNTER → 2025-01-26 | Outpatient (CLI) | payer MEDICARE | END | disposition home or self-care (01) | LOC: RESCLI 00:43 | PROVIDERS: ATTEND Internal Medicine | DX: R32 Unspecified urinary incontinence (principal); I48.92 Unspecified atrial flutter; F32.9 Major depressive disorder, single episode, unspecified; I11.0 Hypertensive heart disease with heart failure; I50.20 Unspecified systolic (congestive) heart failure; E56.9 Vitamin deficiency, unspecified; E53.8 Deficiency of other specified B group vitamins; J30.9 Allergic rhinitis, unspecified; M15.9 Polyosteoarthritis, unspecified; E78.5 Hyperlipidemia, unspecified; E11.69 Type 2 diabetes mellitus with other specified complication; M62.838 Other muscle spasm; G62.9 Polyneuropathy, unspecified; Z79.899 Other long term (current) drug therapy; Z98.890 Other specified postprocedural states; Z88.8 Allergy status to other drugs, medicaments and biological substances ==

== ENCOUNTER → 2025-04-06 | Outpatient (CLI) | payer MEDICARE ==
[~2025-04-06] MED LIST changes: +AMOX-CLAV 875-1 EACH PO; +ASPIRIN ADULT L81 M2 PO; +ATORVASTATIN CA80 M1 PO; +B12 ACTIVE1000 MCG PO; +BYETTA PO; +CYMBALTA60 MG PO; +LISINOPRIL5 MG PO; +PEPCID AC20 MG PO; +VENT7GM INH
== END | disposition home or self-care (01) ==
LOC: RESCLI 02:13
PROVIDERS: ATTEND Family Medicine
DX: L03.90 Cellulitis, unspecified (principal); R93.89 Abnormal findings on diagnostic imaging of other specified body structures; E78.5 Hyperlipidemia, unspecified; F32.9 Major depressive disorder, single episode, unspecified; J30.9 Allergic rhinitis, unspecified; G62.9 Polyneuropathy, unspecified; M15.9 Polyosteoarthritis, unspecified; E11.69 Type 2 diabetes mellitus with other specified complication; I11.0 Hypertensive heart disease with heart failure; I50.20 Unspecified systolic (congestive) heart failure; M62.838 Other muscle spasm; E53.8 Deficiency of other specified B group vitamins; I48.92 Unspecified atrial flutter